=== PATIENT | male | born 1955 | race Caucasian/White ===

== ENCOUNTER 2017-02-19 14:53 | Inpatient (IN) | payer OTHER ==
[~2017-02-19] VITALS: Ht 177.8 cm; Wt 133.4 kg
[~2017-02-19 14:53] MED LIST: COLACE100 MG PO; FELODIPINE ER5 MG PO; FLOMAX0.4 MG PO; FUROSEMIDE80 MG PO; LISINOPRIL10 MG PO; METAMUCIL PACK1 EACH PO; OMEPRAZOLE40 MG PO; SENNOSIDES8.6 MG PO; TRIAMCINOLONE A15 G3 TOP
[2017-02-19 19:43] LABS: BASOPHILS % 0.3 % (0.0-1.0); EOSINOPHILS # (AUTO) 0.1 (0.0-0.4); EOSINOPHILS % 0.9 % (0.0-6.0); HEMATOCRIT 42.7 % (38.2-49.6); HEMOGLOBIN 14.3 g/dL (14.0-18.0); LYMPHOCYTES # (AUTO) 1.8 (1.0-3.2); LYMPHOCYTES % 16.8 % (18.0-39.1); MEAN CORPUSCULAR HEMOGLOBIN 28.4 pg (28-32); MEAN CORPUSCULAR HGB CONC 33.5 g/dL (31-35); MEAN CORPUSCULAR VOLUME 84.7 fL (81-99); MONOCYTES # (AUTO) 0.9 (0.2-0.8); MONOCYTES % 8.4 % (4.4-11.3); NEUTROPHILS # (AUTO) 7.7 (2.1-6.9); NEUTROPHILS % 73.2 % (38.7-80.0); PLATELET COUNT 203 x10e3/uL (140-360); RED BLOOD COUNT 5.04 x10e6/uL (4.3-5.7); RED CELL DISTRIBUTION WIDTH 14.2 % (11.7-14.4)
[2017-02-19 20:01] LABS: KETONES,URINE TRACE (NEGATIVE); LEUKOCYTE ESTERASE ,URINE TRACE (NEGATIVE); NITRITE,URINE NEGATIVE (NEGATIVE); URINE UROBILINOGEN 1 mg/dL (0.2 - 1)
[2017-02-19 20:02] LABS: BILIRUBIN,URINE 1+ (NEGATIVE); CLARITY,URINE CLEAR (CLEAR); COLOR,URINE YELLOW (YELLOW); PROTEIN,URINE DIPSTICK 1+ (NEGATIVE)
[2017-02-19 20:03] LABS: ALANINE AMINOTRANSFERASE 29 IU/L (0-55); ALBUMIN 3.4 g/dL (3.5-5.0); ALBUMIN/GLOBULIN RATIO 0.8 (0.8-2.0); ALKALINE PHOSPHATASE 79 IU/L (40-150); ANION GAP 14.3 mmol/L (8-16); BLOOD UREA NITROGEN 13 mg/dL (7-26); BUN/CREATININE RATIO 12 (6-25); CARBON DIOXIDE 23 mmol/L (22-29); CHLORIDE 106 mmol/L (98-107); CREATININE, SERUM 1.11 mg/dL (0.72-1.25); EST GLOMERULAR FILTRATION RATE > 60 ML/MIN (60-); GLUCOSE 148 mg/dL (74-118); POTASSIUM 3.3 mmol/L (3.5-5.1); SODIUM 140 mmol/L (136-145)
[2017-02-19 20:20] LABS: BACTERIA,URINE FEW /HPF; MUCUS,URINE MODERATE (RARE); RBC,URINE 0-5 /HPF (0-5)
[2017-02-19] MEDS ORDERED: HYDROMORPHONE 1MG/1ML INJ IV PRN (21:30)
[2017-02-19] MEDS ORDERED: PSYLLIUM SEED PO PRN (21:30)
[2017-02-19] MEDS ORDERED: ONDANSETRON HCL INJ 2 MG/ML VIAL IV PRN (21:30)
[2017-02-19] MEDS ORDERED: [UNRECOGNIZED DRUG - OTHER] PO PRN (21:30)
[2017-02-19] MEDS ORDERED: PSYLLIUM 6GM PACKET PO PRN (21:45)
[2017-02-19] MEDS: VANCOMYCIN 1GM/NS 250 ML 250 ML IV SCH (22:25)
[2017-02-19] MEDS: DOCUSATE SODIUM 100 MG CAP PO SCH (22:25)
[2017-02-19] MEDS: PIPER-TAZ 3.375 GM/NS 50 ML 50 ML IV SCH (22:25)
[2017-02-19] MEDS: SODIUM CHLORIDE 0.9% 1000ML 1,000 ML IV SCH (22:25)
[2017-02-20] MEDS: SENNOSIDES 8.6 MG TAB PO SCH ×3 (00:08→21:26)
[2017-02-20] MEDS ORDERED: ACETAMINOPHEN 325 MG TAB PO PRN (03:30)
[2017-02-20 05:34] LABS: BASOPHILS % 0.4 % (0.0-1.0); EOSINOPHILS # (AUTO) 0.1 (0.0-0.4); EOSINOPHILS % 0.9 % (0.0-6.0); HEMATOCRIT 35.4 % (38.2-49.6); HEMOGLOBIN 11.8 g/dL (14.0-18.0); LYMPHOCYTES # (AUTO) 1.4 (1.0-3.2); LYMPHOCYTES % 17.5 % (18.0-39.1); MEAN CORPUSCULAR HEMOGLOBIN 28.2 pg (28-32); MEAN CORPUSCULAR HGB CONC 33.3 g/dL (31-35); MEAN CORPUSCULAR VOLUME 84.5 fL (81-99); MONOCYTES # (AUTO) 0.7 (0.2-0.8); MONOCYTES % 9.3 % (4.4-11.3); NEUTROPHILS # (AUTO) 5.7 (2.1-6.9); NEUTROPHILS % 71.5 % (38.7-80.0); PLATELET COUNT 178 x10e3/uL (140-360); RED BLOOD COUNT 4.19 x10e6/uL (4.3-5.7); RED CELL DISTRIBUTION WIDTH 14.1 % (11.7-14.4)
[2017-02-20 05:58] LABS: ALANINE AMINOTRANSFERASE 24 IU/L (0-55); ALBUMIN 2.4 g/dL (3.5-5.0); ALBUMIN/GLOBULIN RATIO 0.8 (0.8-2.0); ALKALINE PHOSPHATASE 51 IU/L (40-150); BLOOD UREA NITROGEN 10 mg/dL (7-26); BUN/CREATININE RATIO 12 (6-25); CALCIUM 7.2 mg/dL (8.4-10.2); CARBON DIOXIDE 19 mmol/L (22-29); CHLORIDE 116 mmol/L (98-107); CREATININE, SERUM 0.82 mg/dL (0.72-1.25); EST GLOMERULAR FILTRATION RATE > 60 ML/MIN (60-); GLUCOSE 111 mg/dL (74-118); SODIUM 143 mmol/L (136-145)
[2017-02-20] MEDS: PIPER-TAZ 3.375 GM/NS 50 ML 50 ML IV SCH ×3 (07:35→21:26)
[2017-02-20] MEDS ORDERED: NON-FORMULARY MEDICATION (Furosemide 80 MG) PO SCH (09:00)
[2017-02-20] MEDS ORDERED: PANTOPRAZOLE SOD 40 MG TABEC PO SCH (09:00)
[2017-02-20] MEDS: TAMSULOSIN HCL 0.4 MG CAP PO SCH (11:12)
[2017-02-20] MEDS: SODIUM CHLORIDE 0.9% 1000ML 1,000 ML IV SCH ×2 (11:12→13:27)
[2017-02-20] MEDS: VANCOMYCIN 1GM/NS 250 ML 250 ML IV SCH ×2 (11:12→22:24)
[2017-02-20] MEDS: LISINOPRIL 10 MG TAB PO SCH (11:12)
[2017-02-20] MEDS: DOCUSATE SODIUM 100 MG CAP PO SCH ×2 (11:12→21:26)
[2017-02-20] MEDS: FUROSEMIDE 40 MG TAB PO SCH (11:12)
[2017-02-20] MEDS: FELODIPINE 5 MG TAB CR PO SCH (11:53)
[2017-02-20 14:00] VITALS: BP 115/64
[2017-02-20 15:51] VITALS: BP 115/64
[2017-02-20 20:04] VITALS: BP 131/63
[2017-02-20] MEDS ORDERED: POTASSIUM CHLORIDE 20 MEQ TAB CR PO STA (20:06)
[2017-02-20] MEDS: ENOXAPARIN SOD INJ 40 MG/0.4 ML SYR SC SCH (21:25)
[2017-02-21 00:51] VITALS: BP 108/64
[2017-02-21 05:36] VITALS: BP 117/64
[2017-02-21] MEDS: PIPER-TAZ 3.375 GM/NS 50 ML 50 ML IV SCH ×3 (05:41→21:11)
[2017-02-21 07:22] LABS: ANION GAP 12.9 mmol/L (8-16); BLOOD UREA NITROGEN 9 mg/dL (7-26); BUN/CREATININE RATIO 10 (6-25); CALCIUM 8.8 mg/dL (8.4-10.2); CARBON DIOXIDE 23 mmol/L (22-29); CHLORIDE 111 mmol/L (98-107); CREATININE, SERUM 0.86 mg/dL (0.72-1.25); EST GLOMERULAR FILTRATION RATE > 60 ML/MIN (60-); GLUCOSE 119 mg/dL (74-118); POTASSIUM 3.9 mmol/L (3.5-5.1); SODIUM 143 mmol/L (136-145)
[2017-02-21] MEDS: PANTOPRAZOLE SOD 40 MG TABEC PO SCH (07:30)
[2017-02-21 08:00] VITALS: BP 121/68
[2017-02-21] MEDS: FELODIPINE 5 MG TAB CR PO SCH (09:00)
[2017-02-21] MEDS: FUROSEMIDE 40 MG TAB PO SCH (09:00)
[2017-02-21] MEDS: TAMSULOSIN HCL 0.4 MG CAP PO SCH (09:00)
[2017-02-21] MEDS: LISINOPRIL 10 MG TAB PO SCH (09:00)
[2017-02-21] MEDS: DOCUSATE SODIUM 100 MG CAP PO SCH ×2 (09:24→20:54)
[2017-02-21] MEDS: SENNOSIDES 8.6 MG TAB PO SCH ×2 (09:24→20:54)
[2017-02-21] MEDS: VANCOMYCIN 1GM/NS 250 ML 250 ML IV SCH ×2 (10:00→22:00)
[2017-02-21 12:00] VITALS: BP 151/76
--- NOTE | 2017-02-21 12:12 | History and Physical ---
PRIMARY CARE PROVIDER: Dr. Jason Fields. CHIEF COMPLAINT: Cellulitis, right leg. HISTORY OF PRESENT ILLNESS: Mr. Sr is a 61-year-old gentleman who has recurrent cellulitis, right leg. The patient was treated as an outpatient with oral clindamycin and Bactrim with no improvement. This is about 6th or 7th episode that the patient has had of cellulitis in this right lower leg. He denies any history of trauma, but he does state that his skin cracks from dryness and that is where he thinks the infection comes from. REVIEW OF SYSTEMS: The patient has had subjective fever and chills. He denies weight loss. Denies sinus congestion or sore throat. Denies chest pain or palpitations. Denies shortness of breath, wheezing or cough. Denies abdominal pain, nausea, vomiting or melena. Denies dysuria or flank pain. He has erythema and swelling of the right lower leg. He denies bleeding or bruising. He denies headache, vertigo or loss of consciousness. Denies depression, agitation, homicidal or suicidal ideation. PAST MEDICAL HISTORY: Significant for longstanding hypertension for which he takes felodipine, lisinopril and Lasix for what appears to be chronic venous insufficiency. He also has type 2 diabetes that is diet controlled on no medications. He is morbidly obese. He has had the recurrent cellulitis as noted. ALLERGIES: NO KNOWN DRUG ALLERGIES. PAST SURGICAL HISTORY: He has a history of cholecystectomy done in 2009 and an open reduction and internal fixation of the right arm around elbow last year. FAMILY HISTORY: Remarkable for scattered hypertension and diabetes. No premature heart disease. SOCIAL HISTORY: The patient is . Welsh is his primary language. He does not smoke, drink or use illegal drugs. He is generally independently functioning. PHYSICAL EXAM: PSYCHIATRIC: He is alert and oriented times 3 with normal mood and affect. CONSTITUTIONAL: He is morbidly obese. Is in no acute distress. VITAL SIGNS: Blood pressure 115/64. Pulse 77 and regular. Respiratory rate 19. O2 sat 99%. Temperature 98.3. His weight is 303 pounds with a BMI of 43.47. HEENT: Head is atraumatic. Eyes are anicteric with clear conjunctivae. Ears and nares are without erythema or discharge. Oropharynx is clear. NECK: Is supple with no mass or thyromegaly. LYMPHATIC SYSTEM: He has no palpable cervical, axillary or inguinal adenopathy. CARDIOVASCULAR: His heart has a regular rate and rhythm without murmur or extra heart sounds. He has no carotid bruit. He has no edema on the left leg. He has some swelling and erythema of the right lower leg. He has no carotid bruit. RESPIRATORY: Clear to auscultation and percussion with normal respiratory effort. GASTROINTESTINAL: Abdomen is soft without organomegaly, masses or tenderness. Normal bowel sounds present. CUTANEOUS: His skin is warm and dry to touch. He has marked erythema and swelling of his skin on the right leg below the knee, between the knee and the ankle quite markedly erythematous. MUSCULOSKELETAL: Joints are normal alignment without erythema or swelling. Has no calf tenderness. NEUROLOGIC: Exam is nonfocal with intact cranial nerves and no motor or sensory deficits. DIAGNOSTIC STUDIES: Lower extremity venous Doppler was negative on the right leg showed no evidence of DVT. His chemistry profile shows potassium 3.0. The rest of his electrolytes are normal. CO2 is 19. Creatinine 0.82. BUN 10 for a normal GFR. Glucose 111. Transaminases, bilirubin and alkaline phos are normal. CBC shows a white count 7.93 with 71% neutrophils. Hemoglobin 11.8, hematocrit 35.4 and platelet count 178,000. IMPRESSION AND PLAN 1. Cellulitis, right lower extremity. The patient has been started on IV vancomycin and Zosyn. 2. For his hypertension will continue his felodipine the lisinopril and Lasix. It seems well controlled. Will check an echocardiogram to assess the swelling in the lower extremities to severe if it is venous stasis or if there is an element of heart failure. 3. Type 2 diabetes which is diet controlled. Will continue with that and add sliding scale insulin as needed. 4. For prophylaxis the patient is on omeprazole for GI prophylaxis and Lovenox for DVT prophylaxis. Job#: [id number]
[2017-02-21] MEDS ORDERED: SODIUM CHLORIDE 0.9% 250ML 250 ML ONE (12:16)
[2017-02-21 16:00] VITALS: BP 133/69
[2017-02-21] MEDS: ENOXAPARIN SOD INJ 40 MG/0.4 ML SYR SC SCH (17:00)
[2017-02-21 20:20] VITALS: BP 122/56
[2017-02-22 01:22] VITALS: BP 119/66
[2017-02-22 05:05] VITALS: BP 114/66
[2017-02-22] MEDS: PIPER-TAZ 3.375 GM/NS 50 ML 50 ML IV SCH ×3 (06:30→21:00)
[2017-02-22 06:40] LABS: BASOPHILS % 0.5 % (0.0-1.0); EOSINOPHILS # (AUTO) 0.1 (0.0-0.4); EOSINOPHILS % 1.5 % (0.0-6.0); HEMATOCRIT 38.1 % (38.2-49.6); HEMOGLOBIN 12.8 g/dL (14.0-18.0); LYMPHOCYTES % 22.6 % (18.0-39.1); MEAN CORPUSCULAR HEMOGLOBIN 28.5 pg (28-32); MEAN CORPUSCULAR HGB CONC 33.6 g/dL (31-35); MEAN CORPUSCULAR VOLUME 84.9 fL (81-99); MONOCYTES # (AUTO) 0.8 (0.2-0.8); MONOCYTES % 9.2 % (4.4-11.3); NEUTROPHILS # (AUTO) 5.7 (2.1-6.9); NEUTROPHILS % 65.7 % (38.7-80.0); PLATELET COUNT 221 x10e3/uL (140-360); RED BLOOD COUNT 4.49 x10e6/uL (4.3-5.7)
[2017-02-22 07:06] LABS: ANION GAP 11.5 mmol/L (8-16); BLOOD UREA NITROGEN 9 mg/dL (7-26); BUN/CREATININE RATIO 10 (6-25); CALCIUM 8.8 mg/dL (8.4-10.2); CARBON DIOXIDE 27 mmol/L (22-29); CHLORIDE 107 mmol/L (98-107); CHOLESTEROL 151 MD/DL (0-199); EST GLOMERULAR FILTRATION RATE > 60 ML/MIN (60-); GLUCOSE 115 mg/dL (74-118); HDL CHOLESTEROL 30 MG/DL (40-60); LDL CHOLESTEROL 98 MG/DL (60-130); POTASSIUM 3.5 mmol/L (3.5-5.1); SODIUM 142 mmol/L (136-145); TRIGLYCERIDES 114 MG/DL (0-149)
[2017-02-22] MEDS: PANTOPRAZOLE SOD 40 MG TABEC PO SCH (07:30)
[2017-02-22 08:44] VITALS: BP 130/80
[2017-02-22] MEDS: FELODIPINE 5 MG TAB CR PO SCH (09:00)
[2017-02-22] MEDS: TAMSULOSIN HCL 0.4 MG CAP PO SCH (09:00)
[2017-02-22] MEDS: LISINOPRIL 10 MG TAB PO SCH (09:00)
[2017-02-22] MEDS: FUROSEMIDE 40 MG TAB PO SCH (09:00)
[2017-02-22] MEDS: SENNOSIDES 8.6 MG TAB PO SCH ×2 (09:30→21:00)
[2017-02-22] MEDS: DOCUSATE SODIUM 100 MG CAP PO SCH ×2 (09:30→21:00)
[2017-02-22] MEDS: VANCOMYCIN 1GM/NS 250 ML 250 ML IV SCH ×2 (10:00→22:35)
[2017-02-22 12:00] VITALS: BP 134/74
[2017-02-22 16:00] VITALS: BP 133/73
[2017-02-22] MEDS: ENOXAPARIN SOD INJ 40 MG/0.4 ML SYR SC SCH (17:00)
[2017-02-22 20:25] VITALS: BP 143/77
[2017-02-23 00:24] VITALS: BP 114/71
[2017-02-23 04:10] VITALS: BP 112/64
[2017-02-23] MEDS: PIPER-TAZ 3.375 GM/NS 50 ML 50 ML IV SCH ×3 (06:01→21:30)
[2017-02-23 07:12] LABS: BASOPHILS % 0.4 % (0.0-1.0); EOSINOPHILS # (AUTO) 0.1 (0.0-0.4); EOSINOPHILS % 1.3 % (0.0-6.0); HEMATOCRIT 40.9 % (38.2-49.6); HEMOGLOBIN 13.5 g/dL (14.0-18.0); LYMPHOCYTES # (AUTO) 2.1 (1.0-3.2); LYMPHOCYTES % 21.9 % (18.0-39.1); MEAN CORPUSCULAR HEMOGLOBIN 28.4 pg (28-32); MEAN CORPUSCULAR VOLUME 85.9 fL (81-99); MONOCYTES # (AUTO) 0.8 (0.2-0.8); MONOCYTES % 8.1 % (4.4-11.3); NEUTROPHILS # (AUTO) 6.4 (2.1-6.9); NEUTROPHILS % 67.9 % (38.7-80.0); PLATELET COUNT 252 x10e3/uL (140-360); RED BLOOD COUNT 4.76 x10e6/uL (4.3-5.7); RED CELL DISTRIBUTION WIDTH 13.7 % (11.7-14.4)
[2017-02-23] MEDS: PANTOPRAZOLE SOD 40 MG TABEC PO SCH (07:30)
[2017-02-23 07:45] LABS: ANION GAP 13.3 mmol/L (8-16); BLOOD UREA NITROGEN 10 mg/dL (7-26); BUN/CREATININE RATIO 9 (6-25); CALCIUM 9.4 mg/dL (8.4-10.2); CARBON DIOXIDE 30 mmol/L (22-29); CHLORIDE 102 mmol/L (98-107); CREATININE, SERUM 1.12 mg/dL (0.72-1.25); EST GLOMERULAR FILTRATION RATE > 60 ML/MIN (60-); GLUCOSE 115 mg/dL (74-118); POTASSIUM 4.3 mmol/L (3.5-5.1); SODIUM 141 mmol/L (136-145)
[2017-02-23 07:59] LABS: FERRITIN 444.79 ng/mL (21.81-274.66)
[2017-02-23 08:00] VITALS: BP 126/74
[2017-02-23] MEDS: FELODIPINE 5 MG TAB CR PO SCH (09:00)
[2017-02-23] MEDS: POTASSIUM CHLORIDE 20 MEQ TAB CR PO SCH (09:00)
[2017-02-23] MEDS: LISINOPRIL 10 MG TAB PO SCH (09:00)
[2017-02-23] MEDS: TAMSULOSIN HCL 0.4 MG CAP PO SCH (09:00)
[2017-02-23] MEDS: FUROSEMIDE 40 MG TAB PO SCH (09:00)
[2017-02-23] MEDS: SENNOSIDES 8.6 MG TAB PO SCH (09:14)
[2017-02-23] MEDS: DOCUSATE SODIUM 100 MG CAP PO SCH ×2 (09:14→20:57)
[2017-02-23 09:24] LABS: FOLATE 18.6 ng/mL (7.0-15.4)
[2017-02-23] MEDS: VANCOMYCIN 1GM/NS 250 ML 250 ML IV SCH ×2 (10:00→22:00)
[2017-02-23 12:44] VITALS: BP 128/72
[2017-02-23 16:00] VITALS: BP 116/66
[2017-02-23] MEDS: MAGNESIUM OXIDE 400 MG TAB PO SCH (16:47)
[2017-02-23] MEDS: FERROUS SULFATE 325 MG TAB PO SCH (16:47)
[2017-02-23] MEDS: ASCORBIC ACID 500 MG TAB PO SCH (16:47)
[2017-02-23] MEDS: ZINC SULFATE 220 MG CAP PO SCH (16:48)
[2017-02-23] MEDS: ENOXAPARIN SOD INJ 40 MG/0.4 ML SYR SC SCH (16:48)
[2017-02-23] MEDS ORDERED: CHOLESTYRAMINE 4 GM PACKET PO PRN (18:45)
[2017-02-23 20:00] VITALS: BP 127/75
[2017-02-23] MEDS: OYST-CAL-D 500MG TABLET PO SCH (20:57)
[2017-02-24] VITALS (7 sets, daily range): BP systolic 106–134; BP diastolic 57–71
[2017-02-24] MEDS: PIPER-TAZ 3.375 GM/NS 50 ML 50 ML IV SCH ×3 (06:08→22:10)
[2017-02-24 06:59] LABS: INR 0.98; PROTHROMBIN TIME 13.5 seconds (11.9-14.5)
[2017-02-24] MEDS: PANTOPRAZOLE SOD 40 MG TABEC PO SCH (07:30)
[2017-02-24] MEDS: FERROUS SULFATE 325 MG TAB PO SCH ×3 (08:00→17:33)
[2017-02-24] MEDS: MULTIVITAMINS/MINERALS TAB PO SCH (09:00)
[2017-02-24] MEDS: LISINOPRIL 10 MG TAB PO SCH (09:00)
[2017-02-24] MEDS: TAMSULOSIN HCL 0.4 MG CAP PO SCH (09:00)
[2017-02-24] MEDS: FELODIPINE 5 MG TAB CR PO SCH (09:00)
[2017-02-24] MEDS: POTASSIUM CHLORIDE 20 MEQ TAB CR PO SCH (09:00)
[2017-02-24] MEDS: OYST-CAL-D 500MG TABLET PO SCH ×3 (09:00→22:07)
[2017-02-24] MEDS: MAGNESIUM OXIDE 400 MG TAB PO SCH ×2 (09:00→17:33)
[2017-02-24] MEDS: ZINC SULFATE 220 MG CAP PO SCH ×2 (09:00→17:33)
[2017-02-24] MEDS: FUROSEMIDE 40 MG TAB PO SCH (09:00)
[2017-02-24] MEDS: LACTOBACILLUS ACIDOPHILUS CAPSULE PO SCH ×2 (09:00→17:33)
[2017-02-24] MEDS: ASCORBIC ACID 500 MG TAB PO SCH ×2 (09:00→17:33)
[2017-02-24] MEDS: DOCUSATE SODIUM 100 MG CAP PO SCH ×2 (09:30→22:07)
[2017-02-24] MEDS: VANCOMYCIN 1GM/NS 250 ML 250 ML IV SCH ×2 (10:14→22:00)
[2017-02-24] MEDS: ENOXAPARIN SOD INJ 40 MG/0.4 ML SYR SC SCH (17:00)
[2017-02-24] MEDS ORDERED: LIDOCAINE HCL 2% LOCAL INJ 5 ML SDV VIAL INJ ONE (18:26)
[2017-02-24] MEDS ORDERED: PROPOFOL IV EMULSION 10 MG/ML 50 ML VIAL ONE (18:26)
[2017-02-24] MEDS ORDERED: MIDAZOLAM HCL 2 MG/2 ML VIAL ONE (18:45)
[2017-02-24] MEDS ORDERED: FENTANYL CITRATE/PF 100MCG/2 ML INJ ONE (18:45)
[2017-02-24] MEDS ORDERED: SODIUM CHLORIDE 0.9% 250ML 250 ML ONE (21:46)
--- NOTE | 2017-02-24 22:28 | Operative Report ---
DATE OF PROCEDURE: REFERRING PHYSICIANS: Dr. William Stevens and Dr. Bridger Fields. PROCEDURE PERFORMED: Esophagogastroduodenoscopy with biopsies. INDICATIONS FOR EGD: Upper abdominal pain, anemia, and guaiac-positive stools. PROCEDURE: With patient in a decubitus position, flexible fiberoptic Olympus gastroscope was introduced into the esophagus under direct visualization without any difficulty. There was some patchy erythema noted in the distal esophagus. A minute nodule was noted at the GE junction that was biopsied. The scope was then advanced with ease into the stomach, traversing a small hiatal hernia. Mucosa overlying the antrum and the body revealed some diffuse erythema and a low grade to moderate edema. Biopsies were obtained and sent to stain for H. pylori. There was a 4-mm nodule, mid body, greater curvature that was also biopsied. The peripyloric area was nodular and biopsies were obtained. It was then with gentle persistent pressure all the way to the 2nd portion of the duodenum. It was then withdrawn slowly. Mucosa overlying the proximal 2nd portion and the duodenal bulb appeared to be within normal limits. The scope was then withdrawn back into the stomach and retroflexed, and the mucosa overlying the fundus and the cardia appeared to be within normal limits. The scope was then straightened out. The stomach was decompressed. The scope subsequently withdrawn. Patient tolerated the procedure well. IMPRESSIONS 1. Distal esophagitis. 2. Focal nodularity, gastroesophageal junction, biopsied. 3. Small hiatal hernia. 4. Gastritis, biopsied. Biopsies sent to stain for Helicobacter pylori. 5. Approximately 4-mm nodule, antrum, biopsied. 6. Peripyloric nodules, biopsied. PLAN: Follow up histology. Continue PPI therapy. Job#: [id number] CF cc:MD BRIDGER KIM, DO
[2017-02-25 00:29] VITALS: BP 123/70
[2017-02-25] MEDS: PIPER-TAZ 3.375 GM/NS 50 ML 50 ML IV SCH ×2 (05:51→13:30)
[2017-02-25 06:28] LABS: BASOPHILS % 0.4 % (0.0-1.0); EOSINOPHILS # (AUTO) 0.1 (0.0-0.4); EOSINOPHILS % 1.4 % (0.0-6.0); HEMOGLOBIN 12.9 g/dL (14.0-18.0); LYMPHOCYTES # (AUTO) 1.6 (1.0-3.2); LYMPHOCYTES % 21.6 % (18.0-39.1); MEAN CORPUSCULAR HEMOGLOBIN 28.4 pg (28-32); MEAN CORPUSCULAR HGB CONC 33.1 g/dL (31-35); MEAN CORPUSCULAR VOLUME 85.9 fL (81-99); MONOCYTES # (AUTO) 0.7 (0.2-0.8); MONOCYTES % 9.4 % (4.4-11.3); NEUTROPHILS # (AUTO) 4.9 (2.1-6.9); NEUTROPHILS % 66.8 % (38.7-80.0); PLATELET COUNT 272 x10e3/uL (140-360); RED BLOOD COUNT 4.54 x10e6/uL (4.3-5.7); RED CELL DISTRIBUTION WIDTH 13.5 % (11.7-14.4)
[2017-02-25 06:46] LABS: ANION GAP 10.8 mmol/L (8-16); BLOOD UREA NITROGEN 11 mg/dL (7-26); BUN/CREATININE RATIO 12 (6-25); CARBON DIOXIDE 29 mmol/L (22-29); CHLORIDE 108 mmol/L (98-107); CREATININE, SERUM 0.92 mg/dL (0.72-1.25); EST GLOMERULAR FILTRATION RATE > 60 ML/MIN (60-); GLUCOSE 104 mg/dL (74-118); MAGNESIUM 2.1 MG/DL (1.3-2.1); POTASSIUM 3.8 mmol/L (3.5-5.1); SODIUM 144 mmol/L (136-145)
[2017-02-25] MEDS: PANTOPRAZOLE SOD 40 MG TABEC PO SCH (07:30)
[2017-02-25 07:47] VITALS: BP 113/63
[2017-02-25] MEDS: FERROUS SULFATE 325 MG TAB PO SCH ×2 (08:00→12:00)
[2017-02-25] MEDS: TAMSULOSIN HCL 0.4 MG CAP PO SCH (08:58)
[2017-02-25] MEDS: FUROSEMIDE 40 MG TAB PO SCH (08:59)
[2017-02-25] MEDS: POTASSIUM CHLORIDE 20 MEQ TAB CR PO SCH (08:59)
[2017-02-25] MEDS: MAGNESIUM OXIDE 400 MG TAB PO SCH (08:59)
[2017-02-25] MEDS: OYST-CAL-D 500MG TABLET PO SCH (08:59)
[2017-02-25] MEDS: FELODIPINE 5 MG TAB CR PO SCH (08:59)
[2017-02-25] MEDS: LACTOBACILLUS ACIDOPHILUS CAPSULE PO SCH (08:59)
[2017-02-25] MEDS: LISINOPRIL 10 MG TAB PO SCH (08:59)
[2017-02-25] MEDS: MULTIVITAMINS/MINERALS TAB PO SCH (08:59)
[2017-02-25] MEDS: ASCORBIC ACID 500 MG TAB PO SCH (09:00)
[2017-02-25] MEDS: DOCUSATE SODIUM 100 MG CAP PO SCH (09:00)
[2017-02-25] MEDS: ZINC SULFATE 220 MG CAP PO SCH (09:00)
[2017-02-25] MEDS: VANCOMYCIN 1GM/NS 250 ML 250 ML IV SCH (10:00)
[2017-02-25 12:46] VITALS: BP 142/71
[2017-02-25] MEDS ORDERED: BACTRIM DS TAB1 EACH PO ×2 (13:57→14:07)
[2017-02-25] MEDS ORDERED: AUGMENTIN 875-1 EACH PO (13:57)
--- NOTE | 2017-02-26 02:19 | Discharge Summary ---
ADMITTING DIAGNOSES 1. Cellulitis in the right leg. 2. Hypertension. 3. Type-2 diabetes. 4. Obesity. DISCHARGE DIAGNOSES 1. Cellulitis in the right leg. 2. Hypertension. 3. Type-2 diabetes. 4. Obesity. 5. Esophagitis. 6. Gastritis. 7. Hiatal hernia. 8. Hypokalemia. 9. Gastrointestinal bleed. 10. Patient has a history of hypertension. 11. Type-2 diabetes. 12. Obesity. 13. Long history of cellulitis in his legs. HOSPITAL COURSE: A 61-year-old gentleman presented with right leg cellulitis, which has been recurrent over many years. He was treated outpatient with p.o. clindamycin and Bactrim with no improvement. No trauma, but states that he does have dryness of the skin, where he uses Lubriderm frequently. During the hospital stay, the patient was started on vancomycin and Zosyn IV. For hypertension, he was restarted on home medicine. Patient was ordered an echo, which showed 55%-60% EF, mild left ventricular hypertrophy, trace aortic regurg, trace mitral regurg, trace tricuspid regurg. Patient was also noted to have a GI bleed due to the positive fecal occult blood test. GI was consulted and EGD was ordered, which was completed on February 24. The EGD showed esophagitis, gastritis, hiatal hernia with nodules on the gastroesophageal junction, which were biopsied. A 4-mm nodule on the antrum and a peripyloric nodule, which was also biopsied. On admission, patient's potassium was found to be 3.3, which was repleted and at time of discharge, potassium is 3.8. Hemoglobin at admission was 14.3. At discharge, 12.9. Patient's diabetes is diet controlled. A1c is less than 7, LDL is under 100. Patient was started on Augmentin b.i.d. for 14 days and Bactrim DS [address] Stevens's recommendation. Patient is to follow up with gastroenterology in 1-2 weeks for biopsy results. Patient will discharge home and follow up with PCP as needed. Dictated By: Angelica De Leon NP JAYNA STEVENS MD Job#: [id number] CQ
== END 2017-02-25 16:07 | disposition home or self-care (01) | DRG 603 ==
LOC: ER 14:53 → ERHOLD 21:33 → MED/SURG2 02-20 12:08
PROVIDERS: ADMIT Internal Medicine; ATTEND Internal Medicine
PROC: 0DB68ZX Excision of Stomach, Via Natural or Artificial Opening Endoscopic, Diagnostic (ICD-10-PCS; principal; 2017-02-24 18:30)
PROC: 0DB48ZX Excision of Esophagogastric Junction, Via Natural or Artificial Opening Endoscopic, Diagnostic (ICD-10-PCS; 2017-02-24 18:30)
DX: L03.115 Cellulitis of right lower limb (principal); Z68.41 Body mass index [BMI] 40.0-44.9, adult; K52.1 Toxic gastroenteritis and colitis; E66.01 Morbid (severe) obesity due to excess calories; K92.2 Gastrointestinal hemorrhage, unspecified; I10 Essential (primary) hypertension; E11.9 Type 2 diabetes mellitus without complications; K20.9 Esophagitis, unspecified; K29.70 Gastritis, unspecified, without bleeding; K44.9 Diaphragmatic hernia without obstruction or gangrene; K31.89 Other diseases of stomach and duodenum; D64.9 Anemia, unspecified; T36.8X5A Adverse effect of other systemic antibiotics, initial encounter; G47.33 Obstructive sleep apnea (adult) (pediatric); E87.6 Hypokalemia
CPT/HCPCS: 36415; 43239; 80048; 80053; 80061; 80202; 81001; 82270; 82607; 82728; 82746; 82948; 83036; 83540; 83735; 84466; 85025; 85045; 85610; 85730; 87040; 88305; 88312; 93306; 93971; 94660; 96360; 96365; 96374; 96376; 99284; J1170; J1650; J2001; J2250; J2543; J3370; J7030; J7050

== ENCOUNTER → 2017-12-25 | Day surgery (SDC) | payer OTHER ==
[~2017-12-25] MED LIST changes: +ASPIR 8181 MG PO; +AUGMENTIN 875-1 EACH PO; +B VITAMIN PO; +BACTRIM DS TAB1 EACH PO; +CO Q1060 MG PO; +FENTANYL CITRATE/PF 100MCG/2 ML INJ ONE; +GLUCOTEN CAPLE1 EACH PO; +HYOSCYAMINE SULFATE 0.5 MG/ML INJ ONE; +MIDAZOLAM HCL 2 MG/2 ML VIAL ONE; +PROPOFOL IV EMULSION 10 MG/ML 50 ML VIAL ONE; +SIMVASTATIN20 MG PO
--- OUTSIDE RECORDS SUMMARY | 2017-12-25 08:24 | XMS REPORT | Continuity of Care Document ---
Author Author [facility] Interface Address Unknown Phone Unavailable Problems Problem Status Onset Date Classification Date Reported Comments Source LEFT RADIAL HEAD FX Active 09/23/2015 [facility] FRACTURE FIXATION Active 09/23/2015 [facility] GERD (<span [id number]</span>) Resolved Problem 10/01/2015 [facility] Hypertension Resolved Problem 10/01/2015 [facility] FRACTURE OF UNSPECIFIED PART OF BODY OF Active [facility] Medications Medication Details Route Status Patient Instructions Ordering Provider Order Date Source pantoprazole 40 mg, 1 tab, Route: PO, Drug form: ECTAB, Before Breakfast, Dosing Weight 140.909, kg, Start date: 09/28/15 12:00:00 CDT, Duration: 30 day, Stop date: 10/28/15 7:30:00 CDTNotes: Tablet should not be chewed or crushed. (Same as: Protonix) Inactive 09/28/2015 [facility] lisinopril 20 mg oral tablet 40 mg=2 tab, PO, Daily, 0 Refill(s) Active 09/28/2015 [facility] senna 8.6 mg oral tablet 8.6 mg=1 tab, PO, BID, # 28 tab, 0 Refill(s) Active 09/28/2015 [facility] polyethylene glycol 3350 oral powder for reconstitution 17 gm, PO, Daily, PRN Constipation, # 527 gm, 0 Refill(s) Active 09/28/2015 [facility] pantoprazole 40 mg oral enteric coated tablet 40 mg, PO, Before Breakfast, # 14 tab, 0 Refill(s) Active 09/28/2015 [facility] gabapentin 300 MG Oral Capsule 300 mg=1 cap, PO, Q8Hnow, # 21 cap, 0 Refill(s) Active 09/28/2015 [facility] Docusate Sodium 100 MG Oral Capsule 100 mg=1 cap, PO, BID, PRN Constipation, # 60 cap, 0 Refill(s) Active 09/28/2015 [facility] Aspirin 325 MG Enteric Coated Tablet 325 mg=1 tab, PO, [id number], # 28 tab, 0 Refill(s) Active 09/28/2015 [facility] amLODIPine 10 mg oral tablet 10 mg=1 tab, PO, Daily, # 30 tab, 0 Refill(s) Active 09/28/2015 [facility] Acetaminophen 325 MG / Hydrocodone Bitartrate 5 MG Oral Tablet [Lawrence 5/325] 2 tab, PO, Q4H, PRN Pain Score 7-10, # 42 tab, 0 Refill(s) Active 09/28/2015 [facility] Aspirin 325 MG Enteric Coated Tablet 325 mg, 1 tab, Route: PO, Drug form: ECTAB, [id number], Dosing Weight 140.909, kg, Priority: STAT, Start date: 09/28/15 11:18:00 CDT, Duration: 30 day, Stop date: 10/27/15 23:18:00 CDTNotes: (Do Not Crush) Do not crush or chew. Inactive 09/28/2015 [facility] Lactulose 667 MG/ML Oral Solution 10 gm, 15 mL, Route: PO, Drug Form: SYRP, Dosing Weight 140.909, kg, BID, PRN Constipation, Start date: 09/27/15 14:55:00 CDT, Duration: 30 day, Stop date: 10/27/15 14:54:00 CDTNotes: (Same as:Chronulac) No Longer Active 09/27/2015 [facility] Lasix 80 mg, 2 tab, Route: PO, Drug form: TAB, Daily, Dosing Weight 140.909, kg, Start date: 09/27/15 9:00:00 CDT, Duration: 30 day, Stop date: 10/26/15 9:00:00 CDTNotes: (Same as: Lasix) May cause GI upset. Give with food or milk. No Longer Active 09/27/2015 [facility] Labetalol 10 mg, 2 mL, Route: IVP, Drug form: INJ, Q4H, Dosing Weight 140.909, kg, PRN Other -See Comment, Start date: 09/26/15 19:34:00 CDT, Duration: 3 doses or times, Stop date: Limited # of times, For SBP>170 No Longer Active 09/27/2015 [facility] Nitroglycerin 0.02 MG/MG Topical Ointment 1 inch, Route: TOP, Drug Form: OINT, Dosing Weight 140.909, kg, Q6H, Start date: 09/26/15 18:00:00 CDT, Duration: 18 hr, Stop date: 09/27/15 6:00:00 CDTNotes: 1 gram is approximately 1 inch of nitroglycerin ointment (20 mg NTG per gram) (Same as:Nitro-Bid) No Longer Active 09/26/2015 [facility] Labetalol 10 mg, 2 mL, Route: IVP, Drug form: INJ, Q15Min, Dosing Weight 140.909, kg, PRN Hypertension, Start date: 09/26/15 17:41:00 CDT, Duration: 3 doses or times, Stop date: Limited # of times Inactive 09/26/2015 [facility] Lasix 40 mg, 4 mL, Route: IVP, Drug form: INJ, ONCE, Dosing Weight 140.909, kg, Start date: 09/26/15 17:36:00 CDT, Stop date: 09/26/15 17:36:00 CDTNotes: (Same as: Lasix) MEDICATION WASTE Product Size: 40 mg Product Wasted: ___ mg Inactive 09/26/2015 [facility] Labetalol 20 mg, 4 mL, Route: IVP, Drug form: INJ, ONCE, Dosing Weight 140.909, kg, Start date: 09/26/15 16:17:00 CDT, Stop date: 09/26/15 16:17:00 CDT Inactive 09/26/2015 [facility] gabapentin 300 mg, 1 cap, Route: PO, Drug form: CAP, Q8Hnow, Dosing Weight 140.909, kg, Start date: 09/26/15 16:00:00 CDT, Duration: 30 day, Stop date: 10/26/15 8:00:00 CDTNotes: (Same as: Neurontin) No Longer Active 09/26/2015 [facility] Tramadol 100 mg, 2 tab, Route: PO, Drug form: TAB, Q6Hnow, Dosing Weight 140.909, kg, Start date: 09/26/15 16:00:00 CDT, Duration: 30 day, Stop date: 10/26/15 10:00:00 CDTNotes: Not to exceed 400mg/day. (Same As: Ultram) No Longer Active 09/26/2015 [facility] Acetaminophen 325 MG / Hydrocodone Bitartrate 5 MG Oral Tablet 2 tab, Route: PO, Drug Form: TAB, Dosing Weight 138.636, kg, Q4H, PRN Pain Score 7-10, Start date: 09/26/15 15:56:00 CDT, Duration: 30 day, Stop date: 10/26/15 15:55:00 CDTNotes: (Same as: Lawrence 325/5) Do not exceed 4gm/day of acetaminophen. Inactive 09/26/2015 [facility] Methocarbamol 1,000 mg, 2 tab, Route: PO, Drug form: TAB, Q8H, Dosing Weight 140.909, kg, PRN Muscle Spasms, Start date: 09/26/15 15:36:00 CDT, Duration: 30 day, Stop date: 10/26/15 15:35:00 CDTNotes: (Same as:Robaxin) No Longer Active 09/26/2015 [facility] Acetaminophen 325 MG / Hydrocodone Bitartrate 5 MG Oral Tablet [Lawrence 5/325] 2 tab, Route: PO, Drug Form: TAB, Dosing Weight 140.909, kg, Q4H, PRN Pain Score 7-10, Start date: 09/26/15 15:35:00 CDT, Duration: 30 day, Stop date: 10/26/15 15:34:00 CDTNotes: (Same as: Lawrence 325/5) Do not exceed 4gm/day of acetaminophen. No Longer Active 09/26/2015 [facility] Acetaminophen 325 MG / Hydrocodone Bitartrate 5 MG Oral Tablet [Lawrence 5/325] 1 tab, Route: PO, Drug Form: TAB, Dosing Weight 140.909, kg, Q4H, PRN Pain Score 4-6, Start date: 09/26/15 15:34:00 CDT, Duration: 30 day, Stop date: 10/26/15 15:33:00 CDTNotes: (Same as: Lawrence 325/5) Do not exceed 4gm/day of acetaminophen. No Longer Active 09/26/2015 [facility] enalapril 0.625 mg, Route: IVP, ONCE, Dosing Weight 140.909, kg, Start date: 09/26/15 13:29:00 CDT, Stop date: 09/26/15 13:29:00 CDT Inactive 09/26/2015 [facility] Ondansetron 4 mg, 2 mL, Route: IVP, Drug form: INJ, ONCE, Dosing Weight 140.909, kg, PRN Nausea & Vomiting, Start date: 09/26/15 13:16:00 CDTNotes: (Same as: Zofran) MEDICATION WASTE Product Size: 4 mg Product Wasted: ___ mg No Longer Active 09/26/2015 [facility] Labetalol 10 mg, 2 mL, Route: IVP, Drug form: INJ, Q5Min, Dosing Weight 140.909, kg, PRN Elevated BP, Start date: 09/26/15 13:16:00 CDT, Duration: 5 doses or times, Stop date: 09/27/15 0:00:00 CDT Inactive 09/26/2015 [facility] Hydralazine 10 mg, 0.5 mL, Route: IVP, Drug form: INJ, Q20Min, Dosing Weight 140.909, kg, PRN Elevated BP, Start date: 09/26/15 13:16:00 CDT, Duration: 2 doses or times, Stop date: 09/27/15 0:00:00 CDTNotes: (Same as: Apresoline) Push over 5 minutes Inactive 09/26/2015 [facility] Naloxone 0.4 mg, 1 mL, Route: IVP, Drug form: INJ, Q2MIN, Dosing Weight 140.909, kg, PRN Narcotic Reversal, Start date: 09/26/15 13:16:00 CDT, Duration: 8 doses or times, Stop date: 09/27/15 0:00:00 CDTNotes: Same as Narcan No Longer Active 09/26/2015 [facility] Flumazenil 0.2 mg, 2 mL, Route: IVP, Drug form: INJ, PRN, Dosing Weight 140.909, kg, PRN Benzodiazepine Reversal, Initial dose, Start date: 09/26/15 13:16:00 CDT, Stop date: 09/27/15 0:00:00 CDTNotes: (Same as: Romazicon) No Longer Active 09/26/2015 [facility] Ancef + sodium chloride 0.9% INJ 100 mL 2 gm, Route: IVPB, Drug form: INJ, ABXQ8H, Dosing Weight 140.909, kg, Start date: 09/26/15 13:00:00 CDT, Duration: 3 doses or times, Stop date: 09/27/15 10:00:00 CDTNotes: (Same As: Ancef, Kefzol) Cefazolin FOR IV SET ONLY MEDICATION WASTE Product Size: 1000 mg Product Wasted: ___ mg No Longer Active 09/26/2015 [facility] Ancef 2 gm, Route: IVPB, ONCE, Dosing Weight 140.909, kg, Start date: 09/26/15 10:18:00 CDT, Duration: 1 doses or times, Stop date: 09/26/15 10:18:00 CDT, Surgical Prophylaxis Only; For patients Inactive 09/26/2015 [facility] Flumazenil 0.2 mg, 2 mL, Route: IVP, Drug form: INJ, PRN, Dosing Weight 140.909, kg, PRN Benzodiazepine Reversal, Initial dose, Start date: 09/26/15 9:40:00 CDT, Duration: 1 day, Stop date: 09/27/15 9:39:00 CDT Notes: (Same as: Romazicon) Inactive 09/26/2015 [facility] Naloxone 0.4 mg, 1 mL, Route: IVP, Drug form: INJ, Q2MIN, Dosing Weight 140.909, kg, PRN Narcotic Reversal, Start date: 09/26/15 9:40:00 CDT, Duration: 8 doses or times, Stop date: Limited # of timesNotes: (Same as: Narcan) Inactive 09/26/2015 [facility] Hydromorphone 0.5 mg, 0.25 mL, Route: IVP, Drug form: INJ, Q5Min, Dosing Weight 140.909, kg, PRN Pain Score 7-10, Start date: 09/26/15 9:40:00 CDT, Duration: 4 doses or times, Stop date: Limited # of timesNotes: ( Same as: Dilaudid) Inactive 09/26/2015 [facility] Ondansetron 4 mg, 2 mL, Route: IVP, Drug form: INJ, ONCE, Dosing Weight 140.909, kg, PRN Nausea & Vomiting, Start date: 09/26/15 9:40:00 CDTNotes: (Same as: Zofran) MEDICATION WASTE Product Size: 4 mg Product Wasted: ___ mg Inactive 09/26/2015 [facility] Oxycodone 5 mg, 1 tab, Route: PO, Drug form: TAB, Q4H, Dosing Weight 140.909, kg, PRN Pain Score 4-6, Start date: 09/26/15 9:40:00 CDT, Duration: 1 day, Stop date: 09/27/15 9:39:00 CDTNotes: (Same as: Roxicodone) Inactive 09/26/2015 [facility] Miralax 17 gm, 1 pkt, Route: PO, Drug form: PWDR, Daily, Dosing Weight 140.909, kg, Start date: 09/25/15 16:00:00 CDT, Duration: 30 day, Stop date: 10/25/15 9:00:00 CDTNotes: Dissolve in 8 oz of water or juice. (Same as: Miralax) No Longer Active 09/25/2015 [facility] Hydrochlorothiazide 25 mg, 1 tab, Route: PO, Drug form: TAB, Daily, Dosing Weight 140.909, kg, Start date: 09/25/15 15:00:00 CDT, Duration: 30 day, Stop date: 10/25/15 9:00:00 CDTNotes: (Same as: Hydrodiuril) With food. No Longer Active 09/25/2015 [facility] Lasix 20 mg, 2 mL, Route: IVP, Drug form: INJ, ONCE, Dosing Weight 140.909, kg, Start date: 09/25/15 14:26:00 CDT, Stop date: 09/25/15 14:26:00 CDTNotes: (Same as: Lasix) Inactive 09/25/2015 [facility] Labetalol 10 mg, 2 mL, Route: IVP, Drug form: INJ, ONCE, Dosing Weight 140.909, kg, Start date: 09/25/15 14:23:00 CDT, Stop date: 09/25/15 14:23:00 CDT Inactive 09/25/2015 [facility] Benadryl 25 mg, 1 cap, Route: PO, Drug form: CAP, ONCE, Dosing Weight 140.909, kg, Start date: 09/24/15 20:57:00 CDT, Stop date: 09/24/15 20:57:00 CDTNotes: (Same as: Benadryl) Inactive 09/25/2015 [facility] Hydralazine 10 mg, 0.5 mL, Route: IVP, Drug form: INJ, Q4H, Dosing Weight 140.909, kg, PRN Hypertension, Start date: 09/24/15 12:54:00 CDT, Stop date: 10/24/15 12:53:00 CDTNotes: (Same as: Apresoline) Push over 5 minutes No Longer Active 09/24/2015 [facility] Amlodipine 10 mg, 1 tab, Route: PO, Drug form: TAB, Daily, Dosing Weight 138.636, kg, Start date: 09/24/15 9:00:00 CDT, Duration: 30 day, Stop date: 10/23/15 9:00:00 CDTNotes: (Same as: Norvasc) No Longer Active 09/24/2015 [facility] Flomax 0.4 mg, 1 cap, Route: PO, Drug form: CAP, Daily, Dosing Weight 138.636, kg, Start date: 09/24/15 9:00:00 CDT, Duration: 30 day, Stop date: 10/23/15 9:00:00 CDTNotes: (Same As: Flomax) "Do Not Crush" No Longer Active 09/24/2015 [facility] Lisinopril 40 mg, 2 tab, Route: PO, Drug form: TAB, Daily, Dosing Weight 138.636, kg, Start date: 09/24/15 9:00:00 CDT, Stop date: 10/23/15 9:00:00 CDTNotes: (Same as: Prinivil, Zestril) No Longer Active 09/24/2015 [facility] Docusate Sodium 100 MG Oral Capsule 100 mg, 1 cap, Route: PO, Drug form: CAP, BID, Dosing Weight 140.909, kg, Start date: 09/24/15 9:00:00 CDT, Duration: 30 day, Stop date: 10/23/15 17:00:00 CDTNotes: (Same as: Colace) (Do Not Crush) No Longer Active 09/24/2015 [facility] senna 8.6 mg oral tablet 8.6 mg, 1 tab, Route: PO, Drug Form: TAB, Dosing Weight 140.909, kg, BID, Start date: 09/24/15 9:00:00 CDT, Duration: 30 day, Stop date: 10/23/15 17:00:00 CDTNotes: (Same as: Senokot) No Longer Active 09/24/2015 [facility] Acetaminophen 325 MG / Hydrocodone Bitartrate 10 MG Oral Tablet [Lawrence 10/325] 1 tab, Route: PO, Drug Form: TAB, Dosing Weight 140.909, kg, Q6H, Start date: 09/24/15 6:00:00 CDT, Duration: 30 day, Stop date: 10/24/15 0:00:00 CDTNotes: Do not exceed 4gm/day of acetaminophen. (Same as: Lawrence 325/10) No Longer Active 09/24/2015 [facility] Enoxaparin 40 mg, 0.4 mL, Route: SUB-Q, Drug form: INJ, [id number], Dosing Weight 138.636, kg, Consider for obese patients, Start date: 09/24/15 3:00:00 CDT, Duration: 30 day, Stop date: 10/23/15 17:00:00 CDTNotes: (Same as: Lovenox) No Longer Active 09/24/2015 [facility] potassium chloride 10 mEq, 50 mL, Route: IVPB, Drug form: INJ, ONCE, Dosing Weight 138.636, kg, Start date: 09/24/15 2:30:00 CDT, Stop date: 09/24/15 2:30:00 CDTNotes: (Same as: KCL) Infuse over 2 hours. Inactive 09/24/2015 [facility] Tamsulosin hydrochloride 0.4 MG Oral Capsule [Flomax] 0.4 mg=1 cap, PO, Daily, # 30 cap, 0 Refill(s) Active 09/24/2015 [facility] Furosemide 80 MG Oral Tablet [Lasix] 80 mg=1 tab, PO, Daily, # 90 tab, 0 Refill(s) Active 09/24/2015 [facility] lisinopril 10 mg oral tablet 10 mg=1 tab, PO, Daily, # 30 tab, 0 Refill(s) No Longer Active 09/24/2015 [facility] senna 8.6 mg oral tablet 8.6 mg, 1 tab, Route: PO, Drug Form: TAB, Dosing Weight 138.636, kg, BID, PRN Constipation, Start date: 09/24/15 2:13:00 CDT, Duration: 30 day, Stop date: 10/24/15 2:12:00 CDTNotes: (Same as: Senokot) Inactive 09/24/2015 [facility] Saline Flush 0.9% 10 ml, Route: IVP, Drug Form: INJ, Dosing Weight 138.636, kg, PRN, PRN Line Flush, Start date: 09/24/15 2:12:00 CDT, Duration: 30 day, Stop date: 10/24/15 2:11:00 CDTNotes: Same as: BD Posiflush Sterile No Longer Active 09/24/2015 [facility] Sodium Chloride 0.154 MEQ/ML Injectable Solution 1,000 mL, Rate: 45 ml/hr, Infuse over: 22.2 hr, Route: IV, Dosing Weight 138.636 kg, Total Volume: 1,000, Start date: 09/24/15 2:12:00 CDT, Duration: 30 day, Stop date: 10/24/15 2:11:00 CDT No Longer Active 09/24/2015 [facility] Ondansetron 4 mg, 2 mL, Route: IVP, Drug form: INJ, Q6H, Dosing Weight 138.636, kg, PRN Nausea & Vomiting, Start date: 09/24/15 2:12:00 CDT, Duration: 30 day, Stop date: 10/24/15 2:11:00 CDTNotes: (Same as: Shabnam) MEDICATION WASTE Product Size: 4 mg Product Wasted: ___ mg No Longer Active 09/24/2015 [facility] Acetaminophen 650 mg, 2 tab, Route: PO, Drug form: TAB, Q4H, Dosing Weight 138.636, kg, PRN Pain 1-3/Temp > 100.4 F, Start date: 09/24/15 2:12:00 CDT, Duration: 30 day, Stop date: 10/24/15 2:11:00 CDTNotes: Do not exceed 4 gm/day. (Same as: Tylenol) No Longer Active 09/24/2015 [facility] Acetaminophen 325 MG / Hydrocodone Bitartrate 5 MG Oral Tablet 1 tab, Route: PO, Drug Form: TAB, Dosing Weight 138.636, kg, Q4H, PRN Pain Score 4-6, Start date: 09/24/15 2:12:00 CDT, Duration: 30 day, Stop date: 10/24/15 2:11:00 CDTNotes: (Same as: Lawrence 325/5) Do not exceed 4gm/day of acetaminophen. No Longer Active 09/24/2015 [facility] Docusate 100 mg, 1 cap, Route: PO, Drug form: CAP, BID, Dosing Weight 138.636, kg, PRN Constipation, Start date: 09/24/15 2:12:00 CDT, Duration: 30 day, Stop date: 10/24/15 2:11:00 CDTNotes: (Same as: Colace) (Do Not Crush) No Longer Active 09/24/2015 [facility] Morphine 2 mg, 1 mL, Route: IVP, Drug form: INJ, Q4H, Dosing Weight 138.636, kg, PRN Pain Score 7-10, Start date: 09/24/15 2:12:00 CDT, Duration: 30 day, Stop date: 10/24/15 2:11:00 CDTNotes: (Same as:MORPhine Sulfate) No Longer Active 09/24/2015 [facility] enalaprilat 0.625 mg, 0.5 mL, Route: IV, Drug form: INJ, ONCE, Dosing Weight 138.636, kg, Start date: 09/24/15 0:01:00 CDT, Stop date: 09/24/15 0:01:00 CDTNotes: (Same as: Vasotec-IV) Inactive 09/24/2015 [facility] Dilaudid 1 mg, 0.5 mL, Route: IVP, Drug form: INJ, ONCE, Dosing Weight 138.636, kg, Priority: STAT, Start date: 09/23/15 19:50:00 CDT, Stop date: 09/23/15 19:50:00 CDTNotes: Same as: Dilaudid Inactive 09/24/2015 [facility] Morphine 4 mg, 1 mL, Route: IVP, Drug form: INJ, ONCE, Dosing Weight 138.636, kg, Priority: STAT, Start date: 09/23/15 18:36:00 CDT, Stop date: 09/23/15 18:36:00 CDTNotes: (Same as:MORPhine Sulfate) Inactive 09/23/2015 [facility] Zofran 4 mg, 2 mL, Route: IVP, Drug form: INJ, ONCE, Dosing Weight 138.636, kg, Priority: STAT, Start date: 09/23/15 18:36:00 CDT, Stop date: 09/23/15 18:36:00 CDTNotes: (Same as: Zofran) MEDICATION WASTE Product Size: 4 mg Product Wasted: ___ mg Inactive 09/23/2015 [facility] Allergies, Adverse Reactions, Alerts Substance Category Reaction Severity Reaction type Status Date Reported Comments Source Immunizations Immunization Date Given Site Status Last Updated Comments Source Results Order Name Results Value Reference Range Date Interpretation Comments Source PARATHYROID PROFILE Ca Norm WB 1.11 mMol/L 1.05 - 1.25 09/28/2015 [facility] PARATHYROID PROFILE Ca Ion WB 1.08 mMol/L 1.05 - 1.25 09/28/2015 [facility] Chest 1view DX Chest 1view DX EXAM: XR CHEST 1 VIEWS DATE: 09/28/2015 9:34 AM CDT INDICATION: Respiratory distress COMPARISON: 09/23/2015 at 0000 hours TECHNIQUE: PA chest radiograph FINDINGS: No acute osseous abnormalities. Cardiomediastinal silhouette is normal for the technique. Costophrenic sulci sharp. No pleural effusions. No focal consolidation or pneumothorax. IMPRESSION: 1. Lungs are clear with no focal consolidative process. 09/28/2015 - - This report was dictated by a Programming Coordinator/Fellow. I have personally reviewed the images as well as the Resident's interpretation and agree with the findings. Read by: Lucas Miguel MD Resident: Lucas Miguel MD Dictated Date/time: 09/28/15 11:41 Electronically Signed by: Tate Slater MD 09/28/15 16:09 FINAL REPORT [facility] ELECTROLYTES Potassium Lvl 3.5 meq/L 3.5 - 5.1 09/28/2015 [facility] ELECTROLYTES eGFR 83 mL/min/1.73m2 09/28/2015 Result Comment: The eGFR is calculated using the CKD-EPI formula. In most young, healthy individuals the eGFR will be >90 mL/min/1.73m2. The eGFR declines with age. An eGFR of 60-89 may be normal in some populations, particularly the elderly, for whom the CKD-EPI formula has not been extensively validated. Use of the eGFR is not recommended in the following populations: Individuals with unstable creatinine concentrations, including patients and those with serious co-morbid conditions. Patients with extremes in muscle mass or diet. The data above are obtained from the National Kidney Disease Education Program (NKDEP) which additionally recommends that when the eGFR is used in patients with extremes of body mass index for purposes of drug dosing, the eGFR should be multiplied by the estimated BMI. [facility] ELECTROLYTES AGAP 24.5 meq/L 10.0 - 20.0 09/28/2015 [facility] ELECTROLYTES CO2 15 meq/L 24 - 32 09/28/2015 [facility] ELECTROLYTES Chloride Lvl 100 meq/L 95 - 109 09/28/2015 [facility] ELECTROLYTES Sodium Lvl 136 meq/L 135 - 145 09/28/2015 [facility] ELECTROLYTES Creatinine Lvl 0.98 mg/dL 0.50 - 1.40 09/28/2015 [facility] ELECTROLYTES BUN 16 mg/dL 7 - 22 09/28/2015 [facility] ELECTROLYTES Glucose Lvl 107 mg/dL 70 - 99 09/28/2015 [facility] ELECTROLYTES Calcium Lvl 6.5 mg/dL 8.5 - 10.5 09/28/2015 Result Comment: Critical Result(s) called to Precious at 09/28/2015 08:08 by PIETER. Read back OK. [facility] HEMATOLOGY Monocytes # 1.4 K/CMM 0.0 - 0.8 09/28/2015 [facility] HEMATOLOGY Lymphocytes # 2.6 K/CMM 1.0 - 5.5 09/28/2015 [facility] HEMATOLOGY Eosinophils # 0.2 K/CMM 0.0 - 0.5 09/28/2015 [facility] HEMATOLOGY Basophils # 0.1 K/CMM 0.0 - 0.2 09/28/2015 [facility] HEMATOLOGY Segs-Bands # 7.9 K/CMM 1.5 - 8.1 09/28/2015 [facility] HEMATOLOGY Lymphocytes 21.4 % 20.0 - 40.0 09/28/2015 [facility] HEMATOLOGY Basophils 0.7 % 0.0 - 1.0 09/28/2015 [facility] HEMATOLOGY Monocytes 11.4 % 2.0 - 12.0 09/28/2015 [facility] HEMATOLOGY Eosinophils 1.3 % 0.0 - 4.0 09/28/2015 [facility] HEMATOLOGY Segs 65.2 % 45.0 - 75.0 09/28/2015 [facility] HEMATOLOGY Hct 38.2 % 42.0 - 54.0 09/28/2015 [facility] HEMATOLOGY RBC 4.59 M/CMM 4.70 - 6.10 09/28/2015 [facility] HEMATOLOGY Hgb 12.9 g/dL 14.0 - 18.0 09/28/2015 [facility] HEMATOLOGY RDW 14.4 % 11.5 - 14.5 09/28/2015 [facility] HEMATOLOGY Platelet 264 K/CMM 133 - 450 09/28/2015 [facility] HEMATOLOGY MPV 8.9 fL 7.4 - 10.4 09/28/2015 [facility] HEMATOLOGY MCH 28.0 pg 27.0 - 31.0 09/28/2015 [facility] HEMATOLOGY MCHC 33.7 g/dL 32.0 - 36.0 09/28/2015 [facility] HEMATOLOGY MCV 83.2 fL 80.0 - 94.0 09/28/2015 [facility] HEMATOLOGY WBC 12.1 K/CMM 3.7 - 10.4 09/28/2015 [facility] ELECTROLYTES AGAP 13.5 meq/L 10.0 - 20.0 09/27/2015 [facility] ELECTROLYTES eGFR 84 mL/min/1.73m2 09/27/2015 Result Comment: The eGFR is calculated using the CKD-EPI formula. In most young, healthy individuals the eGFR will be >90 mL/min/1.73m2. The eGFR declines with age. An eGFR of 60-89 may be normal in some populations, particularly the elderly, for whom the CKD-EPI formula has not been extensively validated. Use of the eGFR is not recommended in the following populations: Individuals with unstable creatinine concentrations, including patients and those with serious co-morbid conditions. Patients with extremes in muscle mass or diet. The data above are obtained from the National Kidney Disease Education Program (NKDEP) which additionally recommends that when the eGFR is used in patients with extremes of body mass index for purposes of drug dosing, the eGFR should be multiplied by the estimated BMI. [facility] ELECTROLYTES CO2 26 meq/L 24 - 32 09/27/2015 [facility] ELECTROLYTES Chloride Lvl 104 meq/L 95 - 109 09/27/2015 [facility] ELECTROLYTES Potassium Lvl 3.5 meq/L 3.5 - 5.1 09/27/2015 [facility] ELECTROLYTES Glucose Lvl 113 mg/dL 70 - 99 09/27/2015 [facility] ELECTROLYTES Creatinine Lvl 0.97 mg/dL 0.50 - 1.40 09/27/2015 [facility] ELECTROLYTES BUN 16 mg/dL 7 - 22 09/27/2015 [facility] ELECTROLYTES Sodium Lvl 140 meq/L 135 - 145 09/27/2015 [facility] ELECTROLYTES Calcium Lvl 8.2 mg/dL 8.5 - 10.5 09/27/2015 [facility] HEMATOLOGY Segs 77.5 % 45.0 - 75.0 09/27/2015 [facility] HEMATOLOGY Lymphocytes 11.7 % 20.0 - 40.0 09/27/2015 [facility] HEMATOLOGY Monocytes 10.7 % 2.0 - 12.0 09/27/2015 [facility] HEMATOLOGY Basophils 0.1 % 0.0 - 1.0 09/27/2015 [facility] HEMATOLOGY Segs-Bands # 9.0 K/CMM 1.5 - 8.1 09/27/2015 [facility] HEMATOLOGY Lymphocytes # 1.4 K/CMM 1.0 - 5.5 09/27/2015 [facility] HEMATOLOGY Monocytes # 1.2 K/CMM 0.0 - 0.8 09/27/2015 [facility] HEMATOLOGY MPV 9.2 fL 7.4 - 10.4 09/27/2015 [facility] HEMATOLOGY Platelet 238 K/CMM 133 - 450 09/27/2015 [facility] HEMATOLOGY RDW 14.4 % 11.5 - 14.5 09/27/2015 [facility] HEMATOLOGY MCV 82.8 fL 80.0 - 94.0 09/27/2015 [facility] HEMATOLOGY MCHC 33.4 g/dL 32.0 - 36.0 09/27/2015 [facility] HEMATOLOGY MCH 27.7 pg 27.0 - 31.0 09/27/2015 [facility] HEMATOLOGY Hgb 12.4 g/dL 14.0 - 18.0 09/27/2015 [facility] HEMATOLOGY Hct 37.2 % 42.0 - 54.0 09/27/2015 [facility] HEMATOLOGY WBC 11.7 K/CMM 3.7 - 10.4 09/27/2015 [facility] HEMATOLOGY RBC 4.49 M/CMM 4.70 - 6.10 09/27/2015 [facility] SPECIAL CHEMISTRY Hgb A1C 6.2 % <=5.6 % 09/27/2015 [facility] ELECTROLYTES Chloride Lvl 105 meq/L 95 - 109 09/26/2015 [facility] ELECTROLYTES Sodium Lvl 141 meq/L 135 - 145 09/26/2015 [facility] ELECTROLYTES Potassium Lvl 3.5 meq/L 3.5 - 5.1 09/26/2015 [facility] ELECTROLYTES BUN 13 mg/dL 7 - 22 09/26/2015 [facility] ELECTROLYTES Creatinine Lvl 1.00 mg/dL 0.50 - 1.40 09/26/2015 [facility] ELECTROLYTES Glucose Lvl 96 mg/dL 70 - 99 09/26/2015 [facility] ELECTROLYTES Calcium Lvl 8.3 mg/dL 8.5 - 10.5 09/26/2015 [facility] ELECTROLYTES CO2 27 meq/L 24 - 32 09/26/2015 [facility] ELECTROLYTES eGFR 80 mL/min/1.73m2 09/26/2015 Result Comment: The eGFR is calculated using the CKD-EPI formula. In most young, healthy individuals the eGFR will be >90 mL/min/1.73m2. The eGFR declines with age. An eGFR of 60-89 may be normal in some populations, particularly the elderly, for whom the CKD-EPI formula has not been extensively validated. Use of the eGFR is not recommended in the following populations: Individuals with unstable creatinine concentrations, including patients and those with serious co-morbid conditions. Patients with extremes in muscle mass or diet. The data above are obtained from the National Kidney Disease Education Program (NKDEP) which additionally recommends that when the eGFR is used in patients with extremes of body mass index for purposes of drug dosing, the eGFR should be multiplied by the estimated BMI. [facility] ELECTROLYTES AGAP 12.5 meq/L 10.0 - 20.0 09/26/2015 [facility] HEMATOLOGY Platelet 220 K/CMM 133 - 450 09/26/2015 [facility] HEMATOLOGY RDW 14.2 % 11.5 - 14.5 09/26/2015 [facility] HEMATOLOGY MPV 9.4 fL 7.4 - 10.4 09/26/2015 [facility] HEMATOLOGY RBC 4.50 M/CMM 4.70 - 6.10 09/26/2015 [facility] HEMATOLOGY WBC 9.2 K/CMM 3.7 - 10.4 09/26/2015 [facility] HEMATOLOGY MCHC 33.8 g/dL 32.0 - 36.0 09/26/2015 [facility] HEMATOLOGY MCV 83.8 fL 80.0 - 94.0 09/26/2015 [facility] HEMATOLOGY Hct 37.7 % 42.0 - 54.0 09/26/2015 [facility] HEMATOLOGY Hgb 12.7 g/dL 14.0 - 18.0 09/26/2015 [facility] HEMATOLOGY MCH 28.3 pg 27.0 - 31.0 09/26/2015 [facility] HEMATOLOGY Monocytes # 1.0 K/CMM 0.0 - 0.8 09/26/2015 [facility] HEMATOLOGY Eosinophils # 0.1 K/CMM 0.0 - 0.5 09/26/2015 [facility] HEMATOLOGY Basophils # 0.1 K/CMM 0.0 - 0.2 09/26/2015 [facility] HEMATOLOGY Eosinophils 1.4 % 0.0 - 4.0 09/26/2015 [facility] HEMATOLOGY Segs-Bands # 5.9 K/CMM 1.5 - 8.1 09/26/2015 [facility] HEMATOLOGY Basophils 0.6 % 0.0 - 1.0 09/26/2015 [facility] HEMATOLOGY Monocytes 10.9 % 2.0 - 12.0 09/26/2015 [facility] HEMATOLOGY Lymphocytes # 2.2 K/CMM 1.0 - 5.5 09/26/2015 [facility] HEMATOLOGY Segs 63.8 % 45.0 - 75.0 09/26/2015 [facility] HEMATOLOGY Lymphocytes 23.3 % 20.0 - 40.0 09/26/2015 [facility] CHEM PANEL Phosphorus 3.2 mg/dL 2.5 - 4.5 09/25/2015 [facility] CHEM PANEL Albumin Lvl 3.0 g/dL 3.5 - 5.0 09/25/2015 [facility] BLOOD BANK RESULTS ABO/Rh O POS 09/25/2015 [facility] BLOOD BANK RESULTS Antibody Scrn Negative (09/25/15 1:11 AM) 09/25/2015 [facility] URINE AND STOOL UA Nitrite Negative (09/24/15 4:52 AM) Negative 09/24/2015 [facility] URINE AND STOOL UA Leuk Est Negative (09/24/15 4:52 AM) Negative 09/24/2015 [facility] URINE AND STOOL UA Blood Negative (09/24/15 4:52 AM) Negative 09/24/2015 [facility] URINE AND STOOL UA Sq Epi None Seen 09/24/2015 [facility] URINE AND STOOL UA Mucus Few /LPF None Seen /LPF 09/24/2015 [facility] URINE AND STOOL UA Urobilinogen <=1.0 mg/dL 0.1 - 1.0 09/24/2015 [facility] URINE AND STOOL UA WBC null 0 - 5 09/24/2015 [facility] URINE AND STOOL UA Spec Grav 1.020 <=1.030 09/24/2015 [facility] URINE AND STOOL UA Color Yellow *NA* (09/24/15 4:52 AM) Yellow 09/24/2015 [facility] URINE AND STOOL UA Turbidity Clear (09/24/15 4:52 AM) Clear 09/24/2015 [facility] URINE AND STOOL UA pH 5.5 5.0 - 8.0 09/24/2015 [facility] URINE AND STOOL UA Protein 10 mg/dL Negative mg/dL 09/24/2015 [facility] URINE AND STOOL UA Bili Negative *NA* (09/24/15 4:52 AM) Negative 09/24/2015 [facility] URINE AND STOOL UA Glucose Negative mg/dL Negative mg/dL 09/24/2015 [facility] URINE AND STOOL UA Ketones Negative mg/dL Negative mg/dL 09/24/2015 [facility] CHEM PANEL Phosphorus 2.9 mg/dL 2.5 - 4.5 09/24/2015 [facility] CHEM PANEL Magnesium Lvl 2.2 mg/dL 1.8 - 2.4 09/24/2015 [facility] CHEM PANEL AST 38 unit/L 0 - 37 09/24/2015 [facility] CHEM PANEL Total Protein 6.7 g/dL 6.4 - 8.4 09/24/2015 [facility] CHEM PANEL Albumin Lvl 3.5 g/dL 3.5 - 5.0 09/24/2015 [facility] CHEM PANEL ALT 49 unit/L 0 - 65 09/24/2015 [facility] CHEM PANEL Bili Total 0.5 mg/dL 0.2 - 1.3 09/24/2015 [facility] CHEM PANEL Alk Phos 76 unit/L 39 - 136 09/24/2015 [facility] CHEM PANEL Globulin 3.2 g/dL 2.0 - 4.0 09/24/2015 [facility] CHEM PANEL A/G Ratio 1.1 0.7 - 1.6 09/24/2015 [facility] CHEM PANEL B/C Ratio 15 6 - 25 09/24/2015 [facility] HEMATOLOGY Eosinophils 0.1 % 0.0 - 4.0 09/24/2015 [facility] HEMATOLOGY Basophils # 0.1 K/CMM 0.0 - 0.2 09/24/2015 [facility] HEMATOLOGY PTT 35.7 s 22.9 - 35.8 09/24/2015 [facility] SPECIAL CHEMISTRY Hgb A1C 6.4 % <=5.6 % 09/24/2015 [facility] Elbow wo contrast CT Elbow wo contrast CT EXAM: CT RIGHT ELBOW WITHOUT CONTRAST, WITH 3-D DATE: 09/24/2015 12:10 AM CDT INDICATION: Pain from a fall COMPARISON: Right elbow radiographs 09/23/2015 TECHNIQUE: Volumetric CT acquisition of the right elbow without contrast. Axial, sagittal and coronal reformats. 3-D volume rendered images. IV contrast: None. DLP: 400 mGy-cm DISCUSSION: Again seen is a comminuted proximal ulnar metaphyseal fracture, with a 4 cm volarly displaced free fragment. Additional 2 cm fragment is displaced dorsally laterally and lies dorsomedial to the radial head. An obliquely oriented fracture line extends through the volar aspect of the coronoid process a 9 mm tall fracture fragment. Intra-articular osseous fragments measuring 15 mm and 6 mm on the volar aspect of the radial head, of likely fracture fragments of the volar medial aspect of the radial head (image [id number] and series 9). A 4 mm osseous fragment is also seen on the volar aspect of the trochlea, uncertain donor site. Tiny osseous fragment of the tip of the medial epicondyle probably chronic. Persistent mild widening of the radiocapitellar joint is present, with mild dorsal lateral subluxation. Elbow joint effusion and soft tissue swelling is present about the left elbow. Posterior splint is present about the left elbow. IMPRESSION: 1. Comminuted radial head fracture, with at least 2 fracture fragments measuring 15 mm and 6 mm seen on the volar aspect of the radial head. 2. Mild widening of the radiocapitellar joint space with mild dorsal lateral subluxation. 3. Minimally displaced fracture of the capitellum on the lateral dorsal aspect. 4. Nondisplaced coronoid process fracture with a 9 mm tall fracture fragment. 5. Comminuted, displaced and angulated proximal ulnar metaphyseal fracture, with a 4 cm displaced butterfly fragment. 6. A 4 mm osseous fragment is also seen on the volar aspect of the trochlea, of uncertain donor site. 7. Tiny osseous fragment of the tip of the medial epicondyle, probably chronic. 09/24/2015 - - This report was dictated by a Programming Coordinator/Fellow. I have personally reviewed the images as well as the Resident's interpretation and agree with the findings. Read by: Sunshine Bell MD Resident: Sunshine Bell MD Dictated Date/time: 09/24/15 07:03 Electronically Signed by: Duke Ferraro 09/24/15 07:51 FINAL REPORT [facility] Elbow wo contrast CT Elbow wo contrast CT EXAM: CT LEFT ELBOW WITHOUT CONTRAST INDICATION: Left elbow pain after fall. TECHNIQUE: Noncontrast helical CT imaging left elbow with multiplanar reformats. Additional 3-D volume rendered images were obtained on scanner workstation. DLP: 827 mGy*cm COMPARISON: Abdominal radiographs 09/24/2015. FINDINGS: There is satisfactory alignment of the elbow. No fracture of the distal humerus. There is an impacted nondisplaced fracture of the radial neck without extension to the articular surface. The radial head is angulated by 20 degrees. There is additional small nondisplaced fracture tip of the conoid process, which measures 9 mm from apex to base (series 8 image 44). Moderate elbow joint effusion is present. There are 2 tiny bone fragments dorsal to the neck of the radius with additional tiny bone fragment adjacent to the supinator crest. Mild elbow soft tissue swelling. IMPRESSION: 1. Impacted nondisplaced radius neck fracture with approximately 20 degrees angulation of the radius articular surface. 2. Small nondisplaced coronoid process fracture measuring 9 mm from apex to base. 3. Tiny bone fragment adjacent to the supinator crest, suspicious for avulsion of the lateral ulnar collateral ligament. 4. Two tiny intraarticular bone fragments posterior to the neck of the radius. 09/24/2015 - - Read by: Cj Mak MD Dictated Date/time: 09/24/15 07:07 Electronically Signed by: Cj Mak MD 09/24/15 07:13 FINAL REPORT [facility] Elbow 3 views DX Elbow 3 views DX EXAM: XR RIGHT ELBOW 3 VIEWS DATE: 09/24/2015 12:01 AM CDT INDICATION: Post-Reduction COMPARISON: 09/24/2015 right elbow radiograph at 2304 hours TECHNIQUE: AP, lateral and oblique radiographs of the right elbow. DISCUSSION: There has been interval casting and reduction of the previously seen radiocapitellar dislocation. There is slight improvement in the alignment of the fragments of the proximal ulnar comminuted fracture, with residual 2 cortical widths lateral and volar displacement of the distal fragment, and mild apex dorsal angulation. A free butterfly fragment of the ulnar metaphysis remains mildly anteriorly displaced. Moderate soft tissue swelling is present about the right elbow. IMPRESSION: Satisfactory alignment of the radiocapitellar joint and improved alignment of the comminuted proximal ulnar fracture status post closed reduction and cast placement. 09/24/2015 - - This report was dictated by a Programming Coordinator/Fellow. I have personally reviewed the images as well as the Resident's interpretation and agree with the findings. Read by: Sunshine Bell MD Resident: Sunshine Bell MD Dictated Date/time: 09/24/15 00:41 Electronically Signed by: Duke Ferraro 09/24/15 01:31 FINAL REPORT [facility] Tibia fibula series DX Tibia fibula series DX EXAM: XR RIGHT TIBIA 2 VIEWS DATE: 09/23/2015 11:33 PM CDT INDICATION: Pain from a fall COMPARISON: None. TECHNIQUE: AP and lateral radiographs of the right tibia. DISCUSSION: No acute fracture or malalignment is identified. Nonspecific mature-appearing periosteal reaction is present along shafts of both the tibia and fibula. There is partially visualized tricompartmental osteophytosis in the knee. Calcaneal enthesophytes are present. Diffuse soft tissue swelling seen. IMPRESSION: 1. No acute fracture or dislocation. 2. Diffuse soft tissue swelling. 09/24/2015 - - This report was dictated by a Programming Coordinator/Fellow. I have personally reviewed the images as well as the Resident's interpretation and agree with the findings. Read by: Sunshine Bell MD Resident: Sunshine Bell MD Dictated Date/time: 09/24/15 01:25 Electronically Signed by: Duke Ferraro 09/24/15 02:49 FINAL REPORT [facility] Elbow 3 views DX Elbow 3 views DX EXAM: XR LEFT ELBOW 3 VIEWS DATE: 09/24/2015 12:09 AM CDT INDICATION: Pain from a fall COMPARISON: Left elbow radiographs 09/23/2015 at 1835 hours TECHNIQUE: AP, lateral and oblique radiographs of the left elbow. DISCUSSION: Again seen is a mildly displaced radial neck fracture, with mild widening of the radiocapitellar joint. A 5 mm ossific fragment projects within the joint space. Nondisplaced coronoid process fracture seen. Elbow joint effusion and soft tissue swelling is identified. Posterior gutter splint seen. IMPRESSION: 1. Mildly displaced radial neck fracture. Mild widening of the radiocapitellar joint space may be related to fracture impaction. 2. Intra-articular osseous body within the elbow joint. 3. Nondisplaced coronoid process fracture. 4. Elbow joint effusion and soft tissue swelling. 09/24/2015 - - This report was dictated by a Programming Coordinator/Fellow. I have personally reviewed the images as well as the Resident's interpretation and agree with the findings. Read by: Sunshine Bell MD Resident: Sunshine Bell MD Dictated Date/time: 09/24/15 01:28 Electronically Signed by: Duke Ferraro 09/24/15 02:54 FINAL REPORT [facility] Elbow 3 views DX Elbow 3 views DX EXAM: XR RIGHT ELBOW 3 VIEWS DATE: 09/23/2015 11:13 PM CDT INDICATION: Pain from a fall COMPARISON: 09/23/2015 at 1645 hours TECHNIQUE: AP, lateral and oblique radiographs of the right elbow DISCUSSION: Overlying splint has been removed. There is mild increase in the radiocapitellar subluxation. There is no significant change in previously seen comminuted fracture of the proximal ulnar metaphysis, with mild dorsal and lateral apex angulation. Mild deformity of the radial head is age indeterminate. Moderate soft tissue is present about the right elbow. IMPRESSION: 1. Interval removal of splint, with mildly worsening of the dorsolateral subluxation of the radiocapitellar joint. 2. No significant change in comminuted proximal ulnar metaphyseal fracture. 3. Deformity of the radial head is age indeterminate. This may be better evaluated on CT. 09/23/2015 - - This report was dictated by a Programming Coordinator/Fellow. I have personally reviewed the images as well as the Resident's interpretation and agree with the findings. Read by: Sunshine Bell MD Resident: Sunshine Bell MD Dictated Date/time: 09/24/15 00:23 Electronically Signed by: Duke Ferraro 09/24/15 02:40 FINAL REPORT [facility] HEMATOLOGY PTT 37.2 s 22.9 - 35.8 09/23/2015 [facility] HEMATOLOGY PT 13.6 s 12.0 - 14.7 09/23/2015 [facility] HEMATOLOGY INR 1.01 0.85 - 1.17 09/23/2015 [facility] Elbow 3 views DX Elbow 3 views DX EXAM: XR LEFT ELBOW 3 VIEWS DATE: 09/23/2015 6:35 PM CDT INDICATION: Pain Post Trauma COMPARISON: None available. TECHNIQUE: AP, lateral and oblique radiographs of the left elbow FINDINGS: There is a mildly displaced fracture at the left radial neck. The radiocapitellar joint remains aligned. Small joint effusion is present. IMPRESSION: Mildly displaced left radial neck fracture. Small joint effusion is present. 09/23/2015 - - This report was dictated by a Programming Coordinator/Fellow. I have personally reviewed the images as well as the Resident's interpretation and agree with the findings. Read by: Melinda Song MD Resident: Melinda Song MD Dictated Date/time: 09/23/15 19:14 Electronically Signed by: Jey Haq MD 09/23/15 19:21 FINAL REPORT [facility] Humerus 2 views DX Humerus 2 views DX EXAM: XR RIGHT ELBOW 3 VIEWS EXAM: XR RIGHT HUMERUS 2 VIEWS DATE: 09/23/2015 5:01 PM CDT INDICATION: Pain Post Trauma COMPARISON: Outside radiographs from the same date at 11:37 hours TECHNIQUE: AP, lateral and oblique radiographs of the right elbow. Two views of the right humerus. FINDINGS: There has been splinting of the left elbow. There is a comminuted fracture of the proximal ulnar metaphysis, with mild dorsal angulation and a displaced fragment of bone. The coronoid is not completely evaluated. The radial head remains dislocated. The humerus remains intact. IMPRESSION: Comminuted fracture of the proximal ulna and dislocation of the radial head. 09/23/2015 - - This report was dictated by a Programming Coordinator/Fellow. I have personally reviewed the images as well as the Resident's interpretation and agree with the findings. Read by: Melinda Song MD Resident: Melinda Song MD Dictated Date/time: 09/23/15 17:33 Electronically Signed by: Jey Hqa MD 09/23/15 19:21 FINAL REPORT [facility] Elbow 3 views DX Elbow 3 views DX EXAM: XR RIGHT ELBOW 3 VIEWS EXAM: XR RIGHT HUMERUS 2 VIEWS DATE: 09/23/2015 5:01 PM CDT INDICATION: Pain Post Trauma COMPARISON: Outside radiographs from the same date at 11:37 hours TECHNIQUE: AP, lateral and oblique radiographs of the right elbow. Two views of the right humerus. FINDINGS: There has been splinting of the left elbow. There is a comminuted fracture of the proximal ulnar metaphysis, with mild dorsal angulation and a displaced fragment of bone. The coronoid is not completely evaluated. The radial head remains dislocated. The humerus remains intact. IMPRESSION: Comminuted fracture of the proximal ulna and dislocation of the radial head. 09/23/2015 - - This report was dictated by a Programming Coordinator/Fellow. I have personally reviewed the images as well as the Resident's interpretation and agree with the findings. Read by: Melinda Song MD Resident: Melinda Song MD Dictated Date/time: 09/23/15 17:33 Electronically Signed by: Jey Haq MD 09/23/15 19:21 FINAL REPORT [facility] Vital Signs Vital Sign Value Date Comments Source Heart Rate 80 09/28/2015 [facility] Temperature Oral (F) 98.0 F 09/28/2015 [facility] Systolic (mm Hg) 125 09/28/2015 [facility] Diastolic (mm Hg) 75 09/28/2015 [facility] Respitory Rate 20 09/28/2015 [facility] Systolic (mm Hg) 126 09/28/2015 [facility] Diastolic (mm Hg) 77 09/28/2015 [facility] Respitory Rate 16 09/28/2015 [facility] Heart Rate 93 09/28/2015 [facility] Temperature Oral (F) 98.0 F 09/28/2015 [facility] Respitory Rate 18 09/28/2015 [facility] Systolic (mm Hg) 117 09/28/2015 [facility] Diastolic (mm Hg) 69 09/28/2015 [facility] Heart Rate 78 09/28/2015 [facility] Temperature Oral (F) 98.2 F 09/28/2015 [facility] Weight 140.909 09/24/2015 [facility] Height 180.34 cm 09/24/2015 [facility] BMI Calculated 43.33 09/24/2015 [facility] BMI Calculated 42.63 09/23/2015 [facility] Height 180.34 cm 09/23/2015 [facility] Weight 138.636 09/23/2015 [facility] Encounters Location Location Details Encounter Type Encounter Number Reason For Visit Attending Provider ADM Date DC Date Status Source [facility] Inpatient [id number] Marko Isaacs 09/23/2015 09/28/2015 [facility] Procedures Procedure Code Date Perfomer Comments Source Cholecystectomy [id number] [facility]
--- OUTSIDE RECORDS SUMMARY | 2017-12-25 08:25 | XMS REPORT | Summary of Care ---
Author Author [facility] Organization [facility] Address Unknown Phone Unavailable Encounter SHELLY Matthews(JASWANT) [id number] Date(s): 09/23/15 - 09/28/15 [facility] [address] [employer] provided by [employer] [place] [address]- Discharge Disposition: Home or Self Care Attending Physician: Aggie Jose MD Admitting Physician: Jeff Xiong MD Referring Physician: Marko Isaacs MD Vital Signs 1 2 3 Most recent to oldest [Reference Range]: 180.34 cm (09/24/15 5:00 AM) 180.34 cm (09/23/15 3:32 PM) Height 98.0 DegF (09/28/15 1:18 PM) 98.0 DegF (09/28/15 8:12 AM) 98.2 DegF (09/28/15 3:06 AM) Temperature Oral [96.4-99.1 DegF] 125/75 mmHg (09/28/15 1:18 PM) 126/77 mmHg (09/28/15 8:12 AM) 117/69 mmHg (09/28/15 3:06 AM) Blood Pressure [90-140/60-90 mmHg] 20 BRMIN (09/28/15 1:18 PM) 16 BRMIN (09/28/15 8:12 AM) 18 BRMIN (09/28/15 3:06 AM) Respiratory Rate [14-20 BRMIN] 80 bpm (09/28/15 1:18 PM) 93 bpm (09/28/15 8:12 AM) 78 bpm (09/28/15 3:06 AM) Peripheral Pulse Rate [60-100 bpm] 140.909 kg (09/24/15 5:00 AM) 138.636 kg (09/23/15 3:32 PM) Weight 43.33 m2 (09/24/15 5:00 AM) 42.63 m2 (09/23/15 3:32 PM) Body Mass Index Problem List Condition Effective Dates Status Health Status Informant GERD Resolved (gastroesophageal reflux disease)(Confirmed) Hypertension(Confirm Resolved ed) Allergies, Adverse Reactions, Alerts Substance Reaction Severity Status NKDA Active Medications acetaminophen 650 mg, 2 tab, Route: PO, Drug form: TAB, Q4H, Dosing Weight 138.636, kg, PRN Pa in 1-3/Temp > 100.4 F, Start date: 09/24/15 2:12:00 CDT, Duration: 30 day, Stop date: 10/24/15 2:11:00 CDT Notes: Do not exceed 4 gm/day. (Same as: Tylenol) Start Date: 09/24/15 Stop Date: 09/26/15 Status: Discontinued acetaminophen-hydrocodone 325 mg-5 mg oral tablet 2 tab, Route: PO, Drug Form: TAB, Dosing Weight 138.636, kg, Q4H, PRN Pain Score 7-10, Start date: 09/26/15 15:56:00 CDT, Duration: 30 day, Stop date: 10/26/15 15:55:00 CDT Notes: (Same as: [place] 325/5) Do not exceed 4gm/day of acetaminophen. Start Date: 09/26/15 Stop Date: 09/26/15 Status: Discontinued acetaminophen-hydrocodone 325 mg-5 mg oral tablet 1 tab, Route: PO, Drug Form: TAB, Dosing Weight 138.636, kg, Q4H, PRN Pain Score 4-6, Start date: 09/24/15 2:12:00 CDT, Duration: 30 day, Stop date: 10/24/15 2: 11:00 CDT Notes: (Same as: [place] 325/5) Do not exceed 4gm/day of acetaminophen. Start Date: 09/24/15 Stop Date: 09/26/15 Status: Discontinued amLODIPine 10 mg, 1 tab, Route: PO, Drug form: TAB, Daily, Dosing Weight 138.636, kg, Start date: 09/24/15 9:00:00 CDT, Duration: 30 day, Stop date: 10/23/15 9:00:00 CDT Notes: (Same as: Norvasc) Start Date: 09/24/15 Stop Date: 09/28/15 Status: Discontinued amLODIPine 10 mg oral tablet 10 mg=1 tab, PO, Daily, # 30 tab, 0 Refill(s) Start Date: 09/28/15 Status: Ordered Ancef 2 gm, Route: IVPB, ONCE, Dosing Weight 140.909, kg, Start date: 09/26/15 10:18:0 0 CDT, Duration: 1 doses or times, Stop date: 09/26/15 10:18:00 CDT, Surgical Pr ophylaxis Only; For patients < 120 kg Start Date: 09/26/15 Stop Date: 09/26/15 Status: Completed Ancef + sodium chloride 0.9% INJ 100 mL 2 gm, Route: IVPB, Drug form: INJ, [id number], Dosing Weight 140.909, kg, Start date : 09/26/15 13:00:00 CDT, Duration: 3 doses or times, Stop date: 09/27/15 10:00:0 0 CDT Notes: (Same As: Ancef, Tigre)Cefazolin FOR IV SET ONLY MEDICATION WAS TE Product Size: 1000 mgProduct Wasted: ___ mg Start Date: 09/26/15 Stop Date: 09/27/15 Status: Completed ANES flumazenil 0.2 mg, 2 mL, Route: IVP, Drug form: INJ, PRN, Dosing Weight 140.909, kg, PRN Be nzodiazepine Reversal, Initial dose, Start date: 09/26/15 9:40:00 CDT, Duration: 1 day, Stop date: 09/27/15 9:39:00 CDT Notes: (Same as: Romazicon) Start Date: 09/26/15 Stop Date: 09/26/15 Status: Discontinued ANES flumazenil 0.2 mg, 2 mL, Route: IVP, Drug form: INJ, PRN, Dosing Weight 140.909, kg, PRN Be nzodiazepine Reversal, Initial dose, Start date: 09/26/15 13:16:00 CDT, Stop mindi e: 09/27/15 0:00:00 CDT Notes: (Same as: Romazicon) Start Date: 09/26/15 Stop Date: 09/27/15 Status: Completed ANES hydrALAZINE 10 mg, 0.5 mL, Route: IVP, Drug form: INJ, Q20Min, Dosing Weight 140.909, kg, CO N Elevated BP, Start date: 09/26/15 13:16:00 CDT, Duration: 2 doses or times, St op date: 09/27/15 0:00:00 CDT Notes: (Same as: Apresoline)Push over 5 minutes Start Date: 09/26/15 Stop Date: 09/26/15 Status: Discontinued ANES HYDROmorphone 0.5 mg, 0.25 mL, Route: IVP, Drug form: INJ, Q5Min, Dosing Weight 140.909, kg, P RN Pain Score 7-10, Start date: 09/26/15 9:40:00 CDT, Duration: 4 doses or times , Stop date: Limited # of times Notes: (Same as: Dilaudid) Start Date: 09/26/15 Stop Date: 09/26/15 Status: Discontinued ANES labetalol 10 mg, 2 mL, Route: IVP, Drug form: INJ, Q5Min, Dosing Weight 140.909, kg, PRN E levated BP, Start date: 09/26/15 13:16:00 CDT, Duration: 5 doses or times, Stop date: 09/27/15 0:00:00 CDT Start Date: 09/26/15 Stop Date: 09/26/15 Status: Discontinued ANES naloxone 0.4 mg, 1 mL, Route: IVP, Drug form: INJ, Q2MIN, Dosing Weight 140.909, kg, PRN Narcotic Reversal, Start date: 09/26/15 9:40:00 CDT, Duration: 8 doses or times, Stop date: Limited # of times Notes: (Same as: Narcan) Start Date: 09/26/15 Stop Date: 09/26/15 Status: Discontinued ANES naloxone 0.4 mg, 1 mL, Route: IVP, Drug form: INJ, Q2MIN, Dosing Weight 140.909, kg, PRN Narcotic Reversal, Start date: 09/26/15 13:16:00 CDT, Duration: 8 doses or times , Stop date: 09/27/15 0:00:00 CDT Notes: Same as Narcan Start Date: 09/26/15 Stop Date: 09/27/15 Status: Completed ANES ondansetron 4 mg, 2 mL, Route: IVP, Drug form: INJ, ONCE, Dosing Weight 140.909, kg, PRN Juvenal sea & Vomiting, Start date: 09/26/15 9:40:00 CDT Notes: (Same as: Zofran) MEDICATION WASTE Product Size: 4 mgProduct Was tim: ___ mg Start Date: 09/26/15 Stop Date: 09/26/15 Status: Discontinued ANES ondansetron 4 mg, 2 mL, Route: IVP, Drug form: INJ, ONCE, Dosing Weight 140.909, kg, PRN Juvenal sea & Vomiting, Start date: 09/26/15 13:16:00 CDT Notes: (Same as: Zofran) MEDICATION WASTE Product Size: 4 mgProduct Was tim: ___ mg Start Date: 09/26/15 Stop Date: 09/28/15 Status: Discontinued ANES oxyCODONE 5 mg, 1 tab, Route: PO, Drug form: TAB, Q4H, Dosing Weight 140.909, kg, PRN Pain Score 4-6, Start date: 09/26/15 9:40:00 CDT, Duration: 1 day, Stop date: 9:39:00 CDT Notes: (Same as: Roxicodone) Start Date: 09/26/15 Stop Date: 09/26/15 Status: Discontinued aspirin 325 mg tablet, enteric coated 325 mg, 1 tab, Route: PO, Drug form: ECTAB, [id number], Dosing Weight 140.909, kg, Priority: STAT, Start date: 09/28/15 11:18:00 CDT, Duration: 30 day, Stop date: 10/27/15 23:18:00 CDT Notes: (Do Not Crush) Do not crush or chew. Start Date: 09/28/15 Stop Date: 09/28/15 Status: Discontinued aspirin 325 mg tablet, enteric coated 325 mg=1 tab, PO, [id number], # 28 tab, 0 Refill(s) Start Date: 09/28/15 Status: Ordered Benadryl 25 mg, 1 cap, Route: PO, Drug form: CAP, ONCE, Dosing Weight 140.909, kg, Start date: 09/24/15 20:57:00 CDT, Stop date: 09/24/15 20:57:00 CDT Notes: (Same as: Benadryl) Start Date: 09/24/15 Stop Date: 09/24/15 Status: Completed Dilaudid 1 mg, 0.5 mL, Route: IVP, Drug form: INJ, ONCE, Dosing Weight 138.636, kg, Prior ity: STAT, Start date: 09/23/15 19:50:00 CDT, Stop date: 09/23/15 19:50:00 CDT Notes: Same as: Dilaudid Start Date: 09/23/15 Stop Date: 09/23/15 Status: Completed docusate 100 mg, 1 cap, Route: PO, Drug form: CAP, BID, Dosing Weight 138.636, kg, PRN Co nstipation, Start date: 09/24/15 2:12:00 CDT, Duration: 30 day, Stop date: 10/23 2:11:00 CDT Notes: (Same as: Colace) (Do Not Crush) Start Date: 09/24/15 Stop Date: 09/28/15 Status: Discontinued docusate sodium 100 mg oral capsule 100 mg=1 cap, PO, BID, PRN Constipation, # 60 cap, 0 Refill(s) Start Date: 09/28/15 Status: Ordered docusate sodium 100 mg oral capsule 100 mg, 1 cap, Route: PO, Drug form: CAP, BID, Dosing Weight 140.909, kg, Start date: 09/24/15 9:00:00 CDT, Duration: 30 day, Stop date: 10/23/15 17:00:00 CDT Notes: (Same as: Colace) (Do Not Crush) Start Date: 09/24/15 Stop Date: 09/28/15 Status: Discontinued enalapril 0.625 mg, Route: IVP, ONCE, Dosing Weight 140.909, kg, Start date: 09/26/15 13:2 9:00 CDT, Stop date: 09/26/15 13:29:00 CDT Start Date: 09/26/15 Stop Date: 09/26/15 Status: Completed enalaprilat 0.625 mg, 0.5 mL, Route: IV, Drug form: INJ, ONCE, Dosing Weight 138.636, kg, St art date: 09/24/15 0:01:00 CDT, Stop date: 09/24/15 0:01:00 CDT Notes: (Same as: Vasotec-IV) Start Date: 09/24/15 Stop Date: 09/24/15 Status: Completed enoxaparin 40 mg, 0.4 mL, Route: SUB-Q, Drug form: INJ, [id number], Dosing Weight 138.636, kg , Consider for obese patients, Start date: 09/24/15 3:00:00 CDT, Duration: 30 da y, Stop date: 10/23/15 17:00:00 CDT Notes: (Same as: Lovenox) Start Date: 09/24/15 Stop Date: 09/28/15 Status: Discontinued Flomax 0.4 mg, 1 cap, Route: PO, Drug form: CAP, Daily, Dosing Weight 138.636, kg, Star t date: 09/24/15 9:00:00 CDT, Duration: 30 day, Stop date: 10/23/15 9:00:00 CDT Notes: (Same As: Flomax) "Do Not Crush" Start Date: 09/24/15 Stop Date: 09/28/15 Status: Discontinued Flomax 0.4 mg oral capsule 0.4 mg=1 cap, PO, Daily, # 30 cap, 0 Refill(s) Start Date: 09/24/15 Status: Ordered gabapentin 300 mg, 1 cap, Route: PO, Drug form: CAP, Q8Hnow, Dosing Weight 140.909, kg, Sta rt date: 09/26/15 16:00:00 CDT, Duration: 30 day, Stop date: 10/26/15 8:00:00 CD T Notes: (Same as: Neurontin) Start Date: 09/26/15 Stop Date: 09/28/15 Status: Discontinued gabapentin 300 mg oral capsule 300 mg=1 cap, PO, Q8Hnow, # 21 cap, 0 Refill(s) Start Date: 09/28/15 Status: Ordered hydrALAZINE 10 mg, 0.5 mL, Route: IVP, Drug form: INJ, Q4H, Dosing Weight 140.909, kg, PRN H ypertension, Start date: 09/24/15 12:54:00 CDT, Stop date: 10/24/15 12:53:00 CDT Notes: (Same as: Apresoline)Push over 5 minutes Start Date: 09/24/15 Stop Date: 09/28/15 Status: Discontinued hydrochlorothiazide 25 mg, 1 tab, Route: PO, Drug form: TAB, Daily, Dosing Weight 140.909, kg, Start date: 09/25/15 15:00:00 CDT, Duration: 30 day, Stop date: 10/25/15 9:00:00 CDT Notes: (Same as: Hydrodiuril) With food. Start Date: 09/25/15 Stop Date: 09/28/15 Status: Discontinued labetalol 10 mg, 2 mL, Route: IVP, Drug form: INJ, Q15Min, Dosing Weight 140.909, kg, PRN Hypertension, Start date: 09/26/15 17:41:00 CDT, Duration: 3 doses or times, Sto p date: Limited # of times Start Date: 09/26/15 Stop Date: 09/26/15 Status: Discontinued labetalol 10 mg, 2 mL, Route: IVP, Drug form: INJ, Q4H, Dosing Weight 140.909, kg, PRN Oth er -See Comment, Start date: 09/26/15 19:34:00 CDT, Duration: 3 doses or times, Stop date: Limited # of times, For SBP>170 Start Date: 09/26/15 Stop Date: 09/28/15 Status: Discontinued labetalol 20 mg, 4 mL, Route: IVP, Drug form: INJ, ONCE, Dosing Weight 140.909, kg, Start date: 09/26/15 16:17:00 CDT, Stop date: 09/26/15 16:17:00 CDT Start Date: 09/26/15 Stop Date: 09/26/15 Status: Completed labetalol 10 mg, 2 mL, Route: IVP, Drug form: INJ, ONCE, Dosing Weight 140.909, kg, Start date: 09/25/15 14:23:00 CDT, Stop date: 09/25/15 14:23:00 CDT Start Date: 09/25/15 Stop Date: 09/25/15 Status: Completed lactulose 10 g/15 mL oral syrup 10 gm, 15 mL, Route: PO, Drug Form: SYRP, Dosing Weight 140.909, kg, BID, PRN Co nstipation, Start date: 09/27/15 14:55:00 CDT, Duration: 30 day, Stop date: 10/08 11/23 14:54:00 CDT Notes: (Same as:Chronulac) Start Date: 09/27/15 Stop Date: 09/28/15 Status: Discontinued Lasix 40 mg, 4 mL, Route: IVP, Drug form: INJ, ONCE, Dosing Weight 140.909, kg, Start date: 09/26/15 17:36:00 CDT, Stop date: 09/26/15 17:36:00 CDT Notes: (Same as: Lasix) MEDICATION WASTE Product Size: 40 mgProduct Was tim: ___ mg Start Date: 09/26/15 Stop Date: 09/26/15 Status: Completed Lasix 20 mg, 2 mL, Route: IVP, Drug form: INJ, ONCE, Dosing Weight 140.909, kg, Start date: 09/25/15 14:26:00 CDT, Stop date: 09/25/15 14:26:00 CDT Notes: (Same as: Lasix) Start Date: 09/25/15 Stop Date: 09/25/15 Status: Completed Lasix 80 mg, 2 tab, Route: PO, Drug form: TAB, Daily, Dosing Weight 140.909, kg, Start date: 09/27/15 9:00:00 CDT, Duration: 30 day, Stop date: 10/26/15 9:00:00 CDT Notes: (Same as: Lasix) May cause GI upset. Give with food or milk. Start Date: 09/27/15 Stop Date: 09/28/15 Status: Discontinued Lasix 80 mg oral tablet 80 mg=1 tab, PO, Daily, # 90 tab, 0 Refill(s) Start Date: 09/24/15 Status: Ordered lisinopril 40 mg, 2 tab, Route: PO, Drug form: TAB, Daily, Dosing Weight 138.636, kg, Start date: 09/24/15 9:00:00 CDT, Stop date: 10/23/15 9:00:00 CDT Notes: (Same as: Prinivil, Zestril) Start Date: 09/24/15 Stop Date: 09/28/15 Status: Discontinued lisinopril 10 mg oral tablet 10 mg=1 tab, PO, Daily, # 30 tab, 0 Refill(s) Start Date: 09/24/15 Stop Date: 09/28/15 Status: Discontinued lisinopril 20 mg oral tablet 40 mg=2 tab, PO, Daily, 0 Refill(s) Start Date: 09/28/15 Status: Ordered methocarbamol 1,000 mg, 2 tab, Route: PO, Drug form: TAB, Q8H, Dosing Weight 140.909, kg, PRN Muscle Spasms, Start date: 09/26/15 15:36:00 CDT, Duration: 30 day, Stop date: 0 10/26/15 15:35:00 CDT Notes: (Same as:Robaxin) Start Date: 09/26/15 Stop Date: 09/28/15 Status: Discontinued MiraLax 17 gm, 1 pkt, Route: PO, Drug form: PWDR, Daily, Dosing Weight 140.909, kg, Star t date: 09/25/15 16:00:00 CDT, Duration: 30 day, Stop date: 10/25/15 9:00:00 CDT Notes: Dissolve in 8 oz of water or juice.(Same as: Miralax) Start Date: 09/25/15 Stop Date: 09/28/15 Status: Discontinued morphine Sulfate 4 mg, 1 mL, Route: IVP, Drug form: INJ, ONCE, Dosing Weight 138.636, kg, Priorit y: STAT, Start date: 09/23/15 18:36:00 CDT, Stop date: 09/23/15 18:36:00 CDT Notes: (Same as:MORPhine Sulfate) Start Date: 09/23/15 Stop Date: 09/23/15 Status: Completed morphine Sulfate 2 mg, 1 mL, Route: IVP, Drug form: INJ, Q4H, Dosing Weight 138.636, kg, PRN Pain Score 7-10, Start date: 09/24/15 2:12:00 CDT, Duration: 30 day, Stop date: 10/08 08/23 2:11:00 CDT Notes: (Same as:MORPhine Sulfate) Start Date: 09/24/15 Stop Date: 09/27/15 Status: Discontinued nitroglycerin 2% ointment 1 inch, Route: TOP, Drug Form: OINT, Dosing Weight 140.909, kg, Q6H, Start date: 09/26/15 18:00:00 CDT, Duration: 18 hr, Stop date: 09/27/15 6:00:00 CDT Notes: 1 gram is approximately 1 inch of nitroglycerin ointment (20 mg NTG pe r gram) (Same as:Nitro-Bid) Start Date: 09/26/15 Stop Date: 09/27/15 Status: Discontinued [place] 10/325 oral tablet 1 tab, Route: PO, Drug Form: TAB, Dosing Weight 140.909, kg, Q6H, Start date: 6:00:00 CDT, Duration: 30 day, Stop date: 10/24/15 0:00:00 CDT Notes: Do not exceed 4gm/day of acetaminophen. (Same as: [place] 325/10) Start Date: 09/24/15 Stop Date: 09/26/15 Status: Discontinued [place] 5/325 oral tablet 2 tab, Route: PO, Drug Form: TAB, Dosing Weight 140.909, kg, Q4H, PRN Pain Score 7-10, Start date: 09/26/15 15:35:00 CDT, Duration: 30 day, Stop date: 10/26/15 15:34:00 CDT Notes: (Same as: [place] 325/5) Do not exceed 4gm/day of acetaminophen. Start Date: 09/26/15 Stop Date: 09/28/15 Status: Discontinued [place] 5/325 oral tablet 1 tab, Route: PO, Drug Form: TAB, Dosing Weight 140.909, kg, Q4H, PRN Pain Score 4-6, Start date: 09/26/15 15:34:00 CDT, Duration: 30 day, Stop date: 10/26/15 1 5:33:00 CDT Notes: (Same as: [place] 325/5) Do not exceed 4gm/day of acetaminophen. Start Date: 09/26/15 Stop Date: 09/28/15 Status: Discontinued [place] 5/325 oral tablet 2 tab, PO, Q4H, PRN Pain Score 7-10, # 42 tab, 0 Refill(s) Start Date: 09/28/15 Stop Date: 10/05/15 Status: Ordered ondansetron 4 mg, 2 mL, Route: IVP, Drug form: INJ, Q6H, Dosing Weight 138.636, kg, PRN Naus ea & Vomiting, Start date: 09/24/15 2:12:00 CDT, Duration: 30 day, Stop date: 10/24/15 2:11:00 CDT Notes: (Same as: Shabnam) MEDICATION WASTE Product Size: 4 mgProduct Was tim: ___ mg Start Date: 09/24/15 Stop Date: 09/28/15 Status: Discontinued pantoprazole 40 mg, 1 tab, Route: PO, Drug form: ECTAB, Before Breakfast, Dosing Weight 140.9 09, kg, Start date: 09/28/15 12:00:00 CDT, Duration: 30 day, Stop date: 10/28/15 7:30:00 CDT Notes: Tablet should not be chewed or crushed.(Same as: Protonix) Start Date: 09/28/15 Stop Date: 09/28/15 Status: Discontinued pantoprazole 40 mg oral enteric coated tablet 40 mg, PO, Before Breakfast, # 14 tab, 0 Refill(s) Start Date: 09/28/15 Status: Ordered polyethylene glycol 3350 oral powder for reconstitution 17 gm, PO, Daily, PRN Constipation, # 527 gm, 0 Refill(s) Start Date: 09/28/15 Stop Date: 10/05/15 Status: Ordered potassium chloride 10 mEq, 50 mL, Route: IVPB, Drug form: INJ, ONCE, Dosing Weight 138.636, kg, Sta rt date: 09/24/15 2:30:00 CDT, Stop date: 09/24/15 2:30:00 CDT Notes: (Same as: KCL) Infuse over 2 hours. Start Date: 09/24/15 Stop Date: 09/24/15 Status: Completed Saline Flush 0.9% 10 ml, Route: IVP, Drug Form: INJ, Dosing Weight 138.636, kg, PRN, PRN Line Flus h, Start date: 09/24/15 2:12:00 CDT, Duration: 30 day, Stop date: 10/24/15 2:11: 00 CDT Notes: Same as: BD Posiflush Sterile Start Date: 09/24/15 Stop Date: 09/28/15 Status: Discontinued senna 8.6 mg oral tablet 8.6 mg=1 tab, PO, BID, # 28 tab, 0 Refill(s) Start Date: 09/28/15 Stop Date: 10/13/15 Status: Ordered senna 8.6 mg oral tablet 8.6 mg, 1 tab, Route: PO, Drug Form: TAB, Dosing Weight 138.636, kg, BID, PRN Co nstipation, Start date: 09/24/15 2:13:00 CDT, Duration: 30 day, Stop date: 10/23 2:12:00 CDT Notes: (Same as: Tiffany) Start Date: 09/24/15 Stop Date: 09/24/15 Status: Discontinued senna 8.6 mg oral tablet 8.6 mg, 1 tab, Route: PO, Drug Form: TAB, Dosing Weight 140.909, kg, BID, Start date: 09/24/15 9:00:00 CDT, Duration: 30 day, Stop date: 10/23/15 17:00:00 CDT Notes: (Same as: Senbertha) Start Date: 09/24/15 Stop Date: 09/28/15 Status: Discontinued sodium chloride 0.9% 1000 ml INJ 1,000 mL 1,000 mL, Rate: 45 ml/hr, Infuse over: 22.2 hr, Route: IV, Dosing Weight 138.636 kg, Total Volume: 1,000, Start date: 09/24/15 2:12:00 CDT, Duration: 30 day, St op date: 10/24/15 2:11:00 CDT Start Date: 09/24/15 Stop Date: 09/26/15 Status: Discontinued tramadol 100 mg, 2 tab, Route: PO, Drug form: TAB, Q6Hnow, Dosing Weight 140.909, kg, Sta rt date: 09/26/15 16:00:00 CDT, Duration: 30 day, Stop date: 10/26/15 10:00:00 C DT Notes: Not to exceed 400mg/day. (Same As: Ultram) Start Date: 09/26/15 Stop Date: 09/28/15 Status: Discontinued Zofran 4 mg, 2 mL, Route: IVP, Drug form: INJ, ONCE, Dosing Weight 138.636, kg, Priorit y: STAT, Start date: 09/23/15 18:36:00 CDT, Stop date: 09/23/15 18:36:00 CDT Notes: (Same as: Zofran) MEDICATION WASTE Product Size: 4 mgProduct Was tim: ___ mg Start Date: 09/23/15 Stop Date: 09/23/15 Status: Completed Results BLOOD BANK RESULTS 1 2 3 Most recent to oldest [Reference Range]: O POS *Unknown* (09/25/15 1:11 AM) ABO/Rh Negative (09/25/15 1:11 AM) Antibody Scrn ELECTROLYTES 1 2 3 Most recent to oldest [Reference Range]: 136 mEq/L (09/28/15 3:48 AM) 140 mEq/L (09/27/15 5:00 AM) 141 mEq/L (09/26/15 3:34 AM) Sodium Lvl [135-145 mEq/L] 3.5 mEq/L (09/28/15 3:48 AM) 3.5 mEq/L (09/27/15 5:00 AM) 3.5 mEq/L (09/26/15 3:34 AM) Potassium Lvl [3.5-5.1 mEq/L] 100 mEq/L (09/28/15 3:48 AM) 104 mEq/L (09/27/15 5:00 AM) 105 mEq/L (09/26/15 3:34 AM) Chloride Lvl [95-109 mEq/L] 15 mEq/L *LOW* (09/28/15 3:48 AM) 26 mEq/L (09/27/15 5:00 AM) 27 mEq/L (09/26/15 3:34 AM) CO2 [24-32 mEq/L] 24.5 mEq/L *HI* (09/28/15 3:48 AM) 13.5 mEq/L (09/27/15 5:00 AM) 12.5 mEq/L (09/26/15 3:34 AM) AGAP [10.0-20.0 mEq/L] CHEM PANEL 1 2 3 Most recent to oldest [Reference Range]: 0.98 mg/dL (09/28/15 3:48 AM) 0.97 mg/dL (09/27/15 5:00 AM) 1.00 mg/dL (09/26/15 3:34 AM) Creatinine Lvl [0.50-1.40 mg/dL] 83 mL/min/1.73m2 1 *NA* (09/28/15 3:48 AM) 84 mL/min/1.73m2 2 *NA* (09/27/15 5:00 AM) 80 mL/min/1.73m2 3 *NA* (09/26/15 3:34 AM) eGFR 16 mg/dL (09/28/15 3:48 AM) 16 mg/dL (09/27/15 5:00 AM) 13 mg/dL (09/26/15 3:34 AM) BUN [7-22 mg/dL] 15 (09/24/15 4:51 AM) B/C Ratio [6-25] 107 mg/dL *HI* (09/28/15 3:48 AM) 113 mg/dL *HI* (09/27/15 5:00 AM) 96 mg/dL (09/26/15 3:34 AM) Glucose Lvl [70-99 mg/dL] 6.7 g/dL (09/24/15 4:51 AM) Total Protein [6.4-8.4 g/dL] 3.0 g/dL *LOW* (09/25/15 1:29 AM) 3.5 g/dL (09/24/15 4:51 AM) Albumin Lvl [3.5-5.0 g/dL] 3.2 g/dL (09/24/15 4:51 AM) Globulin [2.0-4.0 g/dL] 1.1 (09/24/15 4:51 AM) A/G Ratio [0.7-1.6] 6.5 mg/dL 4 *CRIT* (09/28/15 3:48 AM) 8.2 mg/dL *LOW* (09/27/15 5:00 AM) 8.3 mg/dL *LOW* (09/26/15 3:34 AM) Calcium Lvl [8.5-10.5 mg/dL] 3.2 mg/dL (09/25/15 1:29 AM) 2.9 mg/dL (09/24/15 4:51 AM) Phosphorus [2.5-4.5 mg/dL] 2.2 mg/dL (09/24/15 4:51 AM) Magnesium Lvl [1.8-2.4 mg/dL] 49 unit/L (09/24/15 4:51 AM) ALT [0-65 unit/L] 38 unit/L *HI* (09/24/15 4:51 AM) AST [0-37 unit/L] 76 unit/L (09/24/15 4:51 AM) Alk Phos [39-136 unit/L] 0.5 mg/dL (09/24/15 4:51 AM) Bili Total [0.2-1.3 mg/dL] 1Result Comment: The eGFR is calculated using the [...] from the National Kid[employer] Education Program ( NKDEP) which additionally recommends that when the eGFR is used in patients with extremes of body mass index for purposes of drug dosing, the eGFR should be mul tiplied by the estimated BMI. 2Result Comment: The eGFR is calculated using the [...] from the [employer] Program ( NK[employer]) which additionally recommends that when the eGFR is used in patients with extremes of body mass index for purposes of drug dosing, the eGFR should be mul tiplied by the estimated BMI. 3Result Comment: The eGFR is calculated using the [...] from the [employer] Program ( NK[employer]) which additionally recommends that when the eGFR is used in patients with extremes of body mass index for purposes of drug dosing, the eGFR should be mul tiplied by the estimated BMI. 4Result Comment: Critical Result(s) called to Precious at 09/28/2015 08:08 by PIETER. Read back OK. SPECIAL CHEMISTRY 1 2 3 Most recent to oldest [Reference Range]: 6.2 % *HI* (09/27/15 5:00 AM) 6.4 % *HI* (09/24/15 4:51 AM) Hgb A1C [<=5.6 %] PARATHYROID PROFILE 1 2 3 Most recent to oldest [Reference Range]: 1.08 mMol/L (09/28/15 10:14 AM) Ca Ion WB [1.05-1.25 mMol/L] 1.11 mMol/L (09/28/15 10:14 AM) Ca Norm WB [1.05-1.25 mMol/L] URINE AND STOOL 1 2 3 Most recent to oldest [Reference Range]: Clear (09/24/15 4:52 AM) UA Turbidity [Clear] Yellow *NA* (09/24/15 4:52 AM) UA Color [Yellow] 5.5 (09/24/15 4:52 AM) UA pH [5.0-8.0] 1.020 (09/24/15 4:52 AM) UA Spec Grav [<=1.030] Negative mg/dL *NA* (09/24/15 4:52 AM) UA Glucose [Negative mg/dL] Negative (09/24/15 4:52 AM) UA Blood [Negative] Negative mg/dL *NA* (09/24/15 4:52 AM) UA Ketones [Negative mg/dL] 10 mg/dL *ABN* (09/24/15 4:52 AM) UA Protein [Negative mg/dL] <=1.0 mg/dL *NA* (09/24/15 4:52 AM) UA Urobilinogen [0.1-1.0 mg/dL] Negative *NA* (09/24/15 4:52 AM) UA Bili [Negative] Negative (09/24/15 4:52 AM) UA Leuk Est [Negative] Negative (09/24/15 4:52 AM) UA Nitrite [Negative] <1 /HPF *NA* (09/24/15 4:52 AM) UA WBC [0-5 /HPF] None Seen *NA* (09/24/15 4:52 AM) UA Sq Epi Few /LPF *NA* (09/24/15 4:52 AM) UA Mucus [None Seen /LPF] HEMATOLOGY 1 2 3 Most recent to oldest [Reference Range]: 12.1 K/CMM *HI* (09/28/15 3:48 AM) 11.7 K/CMM *HI* (09/27/15 5:00 AM) 9.2 K/CMM (09/26/15 3:34 AM) WBC [3.7-10.4 K/CMM] 4.59 M/CMM *LOW* (09/28/15 3:48 AM) 4.49 M/CMM *LOW* (09/27/15 5:00 AM) 4.50 M/CMM *LOW* (09/26/15 3:34 AM) RBC [4.70-6.10 M/CMM] 12.9 g/dL *LOW* (09/28/15 3:48 AM) 12.4 g/dL *LOW* (09/27/15 5:00 AM) 12.7 g/dL *LOW* (09/26/15 3:34 AM) Hgb [14.0-18.0 g/dL] 38.2 % *LOW* (09/28/15 3:48 AM) 37.2 % *LOW* (09/27/15 5:00 AM) 37.7 % *LOW* (09/26/15 3:34 AM) Hct [42.0-54.0 %] 83.2 fL (09/28/15 3:48 AM) 82.8 fL (09/27/15 5:00 AM) 83.8 fL (09/26/15 3:34 AM) MCV [80.0-94.0 fL] 28.0 pg (09/28/15 3:48 AM) 27.7 pg (09/27/15 5:00 AM) 28.3 pg (09/26/15 3:34 AM) MCH [27.0-31.0 pg] 33.7 g/dL (09/28/15 3:48 AM) 33.4 g/dL (09/27/15 5:00 AM) 33.8 g/dL (09/26/15 3:34 AM) MCHC [32.0-36.0 g/dL] 14.4 % (09/28/15 3:48 AM) 14.4 % (09/27/15 5:00 AM) 14.2 % (09/26/15 3:34 AM) RDW [11.5-14.5 %] 264 K/CMM (09/28/15 3:48 AM) 238 K/CMM (09/27/15 5:00 AM) 220 K/CMM (09/26/15 3:34 AM) Platelet [133-450 K/CMM] 8.9 fL (09/28/15 3:48 AM) 9.2 fL (09/27/15 5:00 AM) 9.4 fL (09/26/15 3:34 AM) MPV [7.4-10.4 fL] 65.2 % (09/28/15 3:48 AM) 77.5 % *HI* (09/27/15 5:00 AM) 63.8 % (09/26/15 3:34 AM) Segs [45.0-75.0 %] 21.4 % (09/28/15 3:48 AM) 11.7 % *LOW* (09/27/15 5:00 AM) 23.3 % (09/26/15 3:34 AM) Lymphocytes [20.0-40.0 %] 11.4 % (09/28/15 3:48 AM) 10.7 % (09/27/15 5:00 AM) 10.9 % (09/26/15 3:34 AM) Monocytes [2.0-12.0 %] 1.3 % (09/28/15 3:48 AM) 1.4 % (09/26/15 3:34 AM) 0.1 % (09/24/15 4:51 AM) Eosinophils [0.0-4.0 %] 0.7 % (09/28/15 3:48 AM) 0.1 % (09/27/15 5:00 AM) 0.6 % (09/26/15 3:34 AM) Basophils [0.0-1.0 %] 7.9 K/CMM (09/28/15 3:48 AM) 9.0 K/CMM *HI* (09/27/15 5:00 AM) 5.9 K/CMM (09/26/15 3:34 AM) Segs-Bands # [1.5-8.1 K/CMM] 2.6 K/CMM (09/28/15 3:48 AM) 1.4 K/CMM (09/27/15 5:00 AM) 2.2 K/CMM (09/26/15 3:34 AM) Lymphocytes # [1.0-5.5 K/CMM] 1.4 K/CMM *HI* (09/28/15 3:48 AM) 1.2 K/CMM *HI* (09/27/15 5:00 AM) 1.0 K/CMM *HI* (09/26/15 3:34 AM) Monocytes # [0.0-0.8 K/CMM] 0.2 K/CMM (09/28/15 3:48 AM) 0.1 K/CMM (09/26/15 3:34 AM) Eosinophils # [0.0-0.5 K/CMM] 0.1 K/CMM (09/28/15 3:48 AM) 0.1 K/CMM (09/26/15 3:34 AM) 0.1 K/CMM (09/24/15 4:51 AM) Basophils # [0.0-0.2 K/CMM] 13.6 seconds (09/23/15 4:56 PM) PT [12.0-14.7 seconds] 1.01 (09/23/15 4:56 PM) INR [0.85-1.17] 35.7 seconds (09/24/15 4:51 AM) 37.2 seconds *HI* (09/23/15 4:56 PM) PTT [22.9-35.8 seconds] Immunizations No data available for this section Procedures Procedure Date Related Diagnosis Body Site Cholecystectomy Social History Social History Type Response Smoking Status Never smoker; Type: Cigarettes; Ready to change: No; Concerns about tobacco use in household: No; Exposure to Tobacco Smoke None; Cigarette Smoking Last 365 Days No; Reg Smoking Cessation Counseling No Assessment and Plan Extracted from: Title: ORTHO TRAUMA Author: Danielle Paula [employer] Date: 09/28/15 ORS TRAUMA Doing ok NAD Comfortable Resting in bed Family at bedside Vitals and Temp: VitalsTmp(F)[id number] 09/27 08:[id number]--- 09/27 03:0698.652071/661105--- 09/26 23:5499.536573/302733--- 09/26 20:2398.269542/001600--- 09/26 16:1798.891166/797783--- 24 Hr Tmax: 99.1F (37.28c) at 09/26 23:54Vital Signs are the last 5 in the past 48 hours. Scheduled Meds (11):amLODIPine, docusate (docusate sodium 100 mg oral capsule), enoxaparin, furosemide (Lasix), gabapentin, hydrochlorothiazide, lisinopril, polyethylene glycol 3350 (MiraLax), senna (senna 8.6 mg oral tablet), tamsulosin (Flomax), tramadol Unscheduled Meds: None PRN Meds (9):acetaminophen-hydrocodone (Harpswell 5/325 oral tablet), acetaminophen- hydrocodone ([place] 5/325 oral tablet), docusate, hydrALAZINE, labetalol, lactulose (lactulose 10 g/15 mL oral syrup), methocarbamol, ondansetron, sodium chloride (Saline Flush 0.9%) One Time Meds: None Continuous Infusions: None [facility] BUN: 16 09/28/15 Hct: 38.2 Low 09/28/15 Hgb: 12.9 Low 09/28/15 MCH: 28.0 09/28/15 MCHC: 33.7 09/28/15 MCV: 83.2 09/28/15 MPV: 8.9 09/28/15 Platelet: 264 09/28/15 RBC: 4.59 Low 09/28/15 RDW: 14.4 09/28/15 WBC: 12.1 High 09/28/15 RUESILT R/M/U Intact R/M/U/AIN/PIN, weak thumb extension Fingers wwp with BCR +2 radial pulse Dressing c/d/i Elevated LUESILT R/M/U Intact R/M/U/AIN/PIN Fingers wwp with BCR +2 radial pulse Sling at bedside DIAGNOSESRight proximal ulna fracture Right radial head fracture - NONOP Left radial head fracture - NONOP A/P60 y/o M s/p fall on 09/23/2015 SURGERIES09/26/2015ORIF R olecranon fracture Open treatment of radial head with parial excision R LUCL repair EUA L elbow PLAN 1. Pain: Per primary team 2. DVT prophylaxis: Defer to the primary team for management. Orthopedics recommends ASA 325 mg PO bid x 2 weeks from date of discharge. 3. HH 12.9 4. Abx: Complete 5. PT/OT: Consulted 6. WBS: NWB ISAIAHE 7. Dressings: RUE - Keep splint in place for now - Keep dressings clean and dry 8. Bowel regimen: Per primary team 9. Anticipated dispo: No further orthopedic intervention, follow up with Dr. Dean on October 04, 2015. Call [phone] for appointment. 10. Plan for surgery: NA 11. Please call Ortho for any question or concerns. Extracted from: Title: [facility] Consult Note Author: Vahe Llamas MD Date: 09/27/15 Patient: SAVANNAH MORALES Age: 60 years Sex: Male : 1955 Associated Diagnoses: None Author: Vahe Llamas MD Basic Information Referral source Reason for consultation: Complex Acute Pain Chief Complaint acute complex post-operative pain History of Present Illness 60 yo w m w/hx. of htn. Pt stepped over a scaffolding at work, but did not clear the obstacle and fell hands first. He suffered left radial neck fracture and comminuted fracture of the right proximal ulna and dislocation of the right radial head. He did not lose consciousness, denies chest pain and dyspnea, and did not injure his legs. He is admitted for surgical repair. Patient is s/p ORIF R ulna and radial head replacement. Pt tolerated the procedure well, however had increasing pain in PACU requiring multimodal therapy including a R supraclavicular nerve block. Patient received 20 cc 0.5% bupivicaine with 3 mg dexamethasone. Tolerated block well with improving pain control. 09/26 Patient not complaining of any pain at this time but, R arm is still numb where supraclavicular ss was placed. We will reevaluate this afternoon for return of sensation. Histories Past Medical History: Resolved Hypertension ([id number]): Resolved. GERD (gastroesophageal reflux disease) ([id number]): Resolved. Family History: Procedure history: Cholecystectomy ([id number]). Social History Social & Psychosocial Habits Tobacco 09/23/2015 Use: Never smoker Type: Cigarettes Ready to change: No Concerns about tobacco use in household: No Exposure to Tobacco Smoke None Cigarette Smoking Last 365 Days No Reg Smoking Cessation Counseling No . Health Status Allergies: Allergic Reactions (All) Severity Not Documented NKDA- No reactions were documented., Allergies (1) ActiveReaction NKDANone Documented Current medications: (Selected) Inpatient Medications Ordered ANES ondansetron: 4 mg, 2 mL, IVP, ONCE, PRN: Nausea & Vomiting Flomax: 0.4 mg, 1 cap, PO, Daily Lasix: 80 mg, 2 tab, PO, Daily MiraLax: 17 gm, 1 pkt, PO, Daily [place] 5/325 oral tablet: 1 tab, PO, Q4H, PRN: Pain Score 4-6 [place] 5/325 oral tablet: 2 tab, PO, Q4H, PRN: Pain Score 7-10 Saline Flush 0.9%: 10 ml, IVP, PRN, PRN: Line Flush amLODIPine: 10 mg, 1 tab, PO, Daily docusate sodium 100 mg oral capsule: 100 mg, 1 cap, PO, BID docusate: 100 mg, 1 cap, PO, BID, PRN: Constipation enoxaparin: 40 mg, 0.4 mL, SUB-Q, [id number] gabapentin: 300 mg, 1 cap, PO, Q8Hnow hydrALAZINE: 10 mg, 0.5 mL, IVP, Q4H, PRN: Hypertension hydrochlorothiazide: 25 mg, 1 tab, PO, Daily labetalol: 10 mg, 2 mL, IVP, Q4H, PRN: Other -See Comment lisinopril: 40 mg, 2 tab, PO, Daily methocarbamol: 1,000 mg, 2 tab, PO, Q8H, PRN: Muscle Spasms ondansetron: 4 mg, 2 mL, IVP, Q6H, PRN: Nausea & Vomiting senna 8.6 mg oral tablet: 8.6 mg, 1 tab, PO, BID tramadol: 100 mg, 2 tab, PO, Q6Hnow Documented Medications Suspended Flomax 0.4 mg oral capsule: 0.4 mg, 1 cap, PO, Daily, 30 cap, 0 Refill(s) Lasix 80 mg oral tablet: 80 mg, 1 tab, PO, Daily, 90 tab, 0 Refill(s) lisinopril 10 mg oral tablet: 10 mg, 1 tab, PO, Daily, 30 tab, 0 Refill(s), Medications (20) Active Scheduled: (11) amLODIPine 10 mg TAB 10 mg 1 tab, PO, Daily docusate sodium 100 mg CAP 100 mg 1 cap, PO, BID enoxaparin 40 mg/0.4 ml INJ 40 mg 0.4 mL, SUB-Q, [id number] furosemide 40 mg TAB 80 mg 2 tab, PO, Daily gabapentin 300 mg CAP 300 mg 1 cap, PO, Q8Hnow hydrochlorothiazide 25 mg TAB 25 mg 1 tab, PO, Daily lisinopril 20 mg TAB 40 mg 2 tab, PO, Daily polyethylene glycol 17 gm packet 17 gm 1 pkt, PO, Daily senna 8.6 mg TAB 8.6 mg 1 tab, PO, BID tamsulosin 0.4 mg CAP 0.4 mg 1 cap, PO, Daily traMADol 50 mg TAB 100 mg 2 tab, PO, Q6Hnow Continuous: (0) PRN: (9) acetaminophen-hydrocodone 325mg-5mg tab 1 tab, PO, Q4H acetaminophen-hydrocodone 325mg-5mg tab 2 tab, PO, Q4H docusate sodium 100 mg CAP 100 mg 1 cap, PO, BID hydrALAZINE 20 mg/1 ml VL 10 mg 0.5 mL, IVP, Q4H labetalol 100 mg/20 ml VL 10 mg 2 mL, IVP, Q4H methocarbamol 500 mg TAB 1,000 mg 2 tab, PO, Q8H ondansetron 4 mg/2ml INJ VL 4 mg 2 mL, IVP, Q6H ondansetron 4 mg/2ml INJ VL 4 mg 2 mL, IVP, ONCE sodium chloride 0.9% 10ml sterile flush syr BD 10 ml, IVP, PRN Problem list: No qualifying data available Review of Systems Constitutional: Negative. Cardiovascular: Negative. Ear/Nose/Mouth/Throat: Negative. Respiratory: Negative. Gastrointestinal: Negative. Musculoskeletal: RUE pain. Neurologic: Negative. Psychiatric: Negative. Endocrine: Negative. Hematology/Lymphatics: Negative. Physical Examination VS/Measurements Vital Signs (last 24 hrs) Last Charted Temp Oral98.0 DegF (SEP 26:) Heart Rate [id number] bpm (SEP 26:) Resp Rate 20 BRMIN (SEP 26:) GLB577 mmHg (SEP 26:) DBP76 mmHg (SEP 26:) XoI218 % (SEP 26:) General: Alert and oriented. Eye: Pupils are equal, round and reactive to light. HENT: Normocephalic. Neck: Supple, Non-tender. Respiratory: Lungs are clear to auscultation, Respirations are non-labored. Cardiovascular: Normal rate, Regular rhythm, No murmur. Gastrointestinal: Soft, Non-tender. Musculoskeletal RUE tenderness. Integumentary: Warm. Neurologic: Alert, Oriented. Cognition and Speech: Oriented, Speech clear and coherent. Psychiatric: Cooperative, Appropriate mood & affect. Review / Management Results review: Labs (Last four charted values) WBC H 11.7(SEP 26)9.2(SEP 25)H 11.7(SEP 23)H 13.8(SEP 22) Hgb L 12.4(SEP 26)L 12.7(SEP 25)L 12.7(SEP 23)L 13.0(SEP 22) Hct L 37.2(SEP 26)L 37.7(SEP 25)L 39.1(SEP 23)L 39.3(SEP 22) Plt 238(SEP 26)220(SEP 25)222(SEP 23)230(SEP 22) Na 140(SEP 26)141(SEP 25)143(SEP 24)144(SEP 23) K 3.5(SEP 26)3.5(SEP 25)3.5(SEP 18)L 3.4(SEP 23) CO2 26(SEP 26)27(SEP 25)28(SEP 24)27(SEP 23) Cl 104(SEP 26)105(SEP 25)107(SEP 18)106(SEP 23) Cr 0.97(SEP 26)1.00(SEP 25)0.87(SEP 24)1.07(SEP 23) BUN 16(SEP 26)13(SEP 25)14(SEP 24)16(SEP 23) Glucose Random H 113(SEP 26)96(SEP 25)H 108(SEP 18)H 128(SEP 23) Mg 2.2(SEP 23) Phos 3.2(SEP 18)2.9(SEP 17) Ca L 8.2(SEP 26)L 8.3(SEP 25)L 8.2(SEP 24)L 7.8(SEP 23) PT 13.6(SEP 22) INR 1.01(SEP 22) PTT 35.7(SEP 17)H 37.2(SEP 22). Chest x-ray results ECG interpretation Impression and Plan Diagnosis Orders Education and Follow-up: Counseled: Regarding treatment, Regarding medications. 60 yo s/p ORIF R ulna and radial head repair with R supraclavicular single shot PNB. Tolerated well. Pain well controlled. -continue norco -continue gabapentin -d/c morphine -continue tramadol -will reevaluate this afternoon and sign off if patient has return of motor and sensory function in RUE. [facility] appreciates this consult, for questions contact us at [phone] Vahe Llamas MD Pgy-[id number] Addendum TEACHING ADDENDUM: by I saw and personally examined this patient and discussed the plan of care with the [facility] resident. I have reviewed the note below and agree with the history, examination findings Marisela MALIK and the plan of care. on 09/29/2015 15:39 Extracted from: Title: Hospitalist History and Author: Shirin Delong MD Date: 09/24/15 Physical Assessment/Plan 1.Left radial fracture splinted 2.Fracture of right ulna splinted surgical repair later this morning low risk for perioperative cardiac event Will optimize BP preop, as he missed yesterday's BP meds 3.Dislocation of distal end of right radius As above 4.Acute pain due to injury Harpswell and morphine prn 5.Hypertension resume home lisinopril amlodipine (felodipine is non formulary here) Hold lasix until post operatively 6.History of BPH Flomax 7.Morbid obesity Counselled 8.Hyperglycemia [id number] 9.Hypokalemia Replete IV raul is NPO Orders: acetaminophen, 650 mg, 2 tab, Route: PO, Drug form: TAB, Q4H, Dosing Weight 138.636, kg, PRN Pain 1-3/Temp > 100.4 F, Start date: 09/24/15 2:12:00 CDT, Duration: 30 day, Stop date: 10/24/15 2:11:00 CDT acetaminophen-hydrocodone 325 mg-5 mg oral tablet, 1 tab, Route: PO, Drug Form: TAB, Dosing Weight 138.636, kg, Q4H, PRN Pain Score 4-6, Start date: 09/24/15 2:12:00 CDT, Duration: 30 day, Stop date: 10/24/15 2:11:00 CDT amLODIPine, 10 mg, 1 tab, Route: PO, Drug form: TAB, Daily, Dosing Weight 138.636, kg, Start date: 09/24/15 9:00:00 CDT, Duration: 30 day, Stop date: 10/23/15 9:00:00 CDT docusate, 100 mg, 1 cap, Route: PO, Drug form: CAP, BID, Dosing Weight 138.636, kg, PRN Constipation, Start date: 09/24/15 2:12:00 CDT, Duration: 30 day, Stop date: 10/24/15 2:11:00 CDT enoxaparin, 40 mg, 0.4 mL, Route: SUB-Q, Drug form: INJ, [id number], Dosing Weight 138.636, kg, Consider for obese patients, Start date: 09/24/15 3:00:00 CDT, Duration: 30 day, Stop date: 10/23/15 15:00:00 CDT lisinopril, 10 mg, 1 tab, Route: PO, Drug form: TAB, Daily, Dosing Weight 138.636, kg, Start date: 09/24/15 9:00:00 CDT, Duration: 30 day, Stop date: 10/23/15 9:00:00 CDT morphine Sulfate, 2 mg, 1 mL, Route: IVP, Drug form: INJ, Q4H, Dosing Weight 138.636, kg, PRN Pain Score 7-10, Start date: 09/24/15 2:12:00 CDT, Duration: 30 day, Stop date: 10/24/15 2:11:00 CDT ondansetron, 4 mg, 2 mL, Route: IVP, Drug form: INJ, Q6H, Dosing Weight 138.636, kg, PRN Nausea & Vomiting, Start date: 09/24/15 2:12:00 CDT, Duration: 30 day, Stop date: 10/24/15 2:11:00 CDT potassium chloride, 10 mEq, Route: IVPB, ONCE, Dosing Weight 138.636, kg, Start date: 09/24/15 2:30:00 CDT, Stop date: 09/24/15 2:30:00 CDT senna 8.6 mg oral tablet, 8.6 mg, 1 tab, Route: PO, Drug Form: TAB, Dosing Weight 138.636, kg, BID, PRN Constipation, Start date: 09/24/15 2:13:00 CDT, Duration: 30 day, Stop date: 10/24/15 2:12:00 CDT Saline Flush 0.9%, 10 ml, Route: IVP, Drug Form: INJ, Dosing Weight 138.636, kg, PRN, PRN Line Flush, Start date: 09/24/15 2:12:00 CDT, Duration: 30 day, Stop date: 10/24/15 2:11:00 CDT sodium chloride 0.9% 1000 ml INJ 1,000 mL, 1,000 mL, Rate: 45 ml/hr, Infuse over: 22.2 hr, Route: IV, Dosing Weight 138.636 kg, Total Volume: 1,000, Start date: 09/24/15 2:12:00 CDT, Duration: 30 day, Stop date: 10/24/15 2:11:00 CDT Flomax, 0.4 mg, 1 cap, Route: PO, Drug form: CAP, Daily, Dosing Weight 138.636, kg, Start date: 09/24/15 9:00:00 CDT, Duration: 30 day, Stop date: 10/23/15 9:00:00 CDT Ambulation Up with Assistance CDM Admission Acute Care Post ED CDM Common IV Orders Complete Blood Count w/ Diff and Platelet Comprehensive Metabolic Panel Creatinine Hemoglobin A1c Magnesium Level Partial Thromboplastin Time Provide Education AC4 Patient Education AC4 Phosphorus Level Platelet Count Resuscitation (Code) Status SCD Application UA with culture if indicated Vital Signs Weigh patient AC4 Prophylaxis Lovenox Disposition pending surgical repair [facility] Hospitalist service is primary. Page [phone] with concerns.
[2017-12-25 11:17] LABS: WBC,FECAL (FECAL LACTOFERRIN) NEGATIVE (NEGATIVE)
[2017-12-25 11:27] VITALS: BP 112/60
--- NOTE | 2017-12-25 13:47 | Operative Report ---
DATE OF PROCEDURE: December 25, 2017 REFERRING PHYSICIAN: Dr. Jason Babcock. PROCEDURE PERFORMED: Colonoscopy and polypectomy with biopsies. INDICATIONS FOR COLONOSCOPY: Colorectal cancer screening. MEDICATION: Patient was done under MAC. Please see anesthesiologist's note. PROCEDURE: With the patient in the left lateral decubitus position, the flexible fiberoptic Olympus colonoscope was inserted into the rectum with ease and advanced all the way to the cecum. Mucosa overlying the cecum appeared to be within normal limits. The ileocecal was intubated and the scope was advanced into the terminal ileum. Biopsies were obtained. The scope was then withdrawn back into the colon. It was then withdrawn slowly and one polyp was hot biopsied from the ascending colon. Two polyps were hot biopsied from the transverse colon and one polyp was snared from the descending colon. Mucosa overlying the left colon revealed some patchy mild inflammatory changes as well as that overlying the rectum and random biopsies were obtained. One polyp was snared from the sigmoid colon. One submucosal nodule in the proximal rectum was removed per snare electrocautery. The scope was then retroflexed into the distal rectum and small internal hemorrhoids were noted, none of which were actively bleeding. The scope was then straightened out. The rectosigmoid area as well as the distal rectal area were decompressed. The scope was subsequently withdrawn after securing an adequate stool specimen that was sent for the appropriate stool studies. Patient tolerated the procedure well. IMPRESSION 1. Ascending colon polyp removed from hot biopsy forceps. 2. Transverse colon polyps times 2, hot biopsied. 3. Descending colon polyps times 1, snared. 4. Mild patchy left-sided colitis. 5. Sigmoid colon polyp, snared. 6. Rectal submucosal nodule snared. 7. Proctitis, mild. 8. Internal hemorrhoids, none actively bleeding. PLAN: Follow up histology. Follow up stool studies. Initiate VSL#3 one p.o. daily and Bentyl 10 mg 1 p.o. t.i.d.. Patient might benefit from a followup colonoscopy in 3 years. Job#: [id number] VAS cc:DR. JASON BABCOCK
[2017-12-25 14:55] LABS: C DIFFICILE TOXIN A&B AMP PROB NEGATIVE (NEGATIVE)
== END | disposition home or self-care (01) ==
LOC: ENDO 08:10
PROVIDERS: ATTEND Internal Medicine Gastroenterology
DX: Z12.11 Encounter for screening for malignant neoplasm of colon (principal); D12.2 Benign neoplasm of ascending colon; D12.3 Benign neoplasm of transverse colon; D12.4 Benign neoplasm of descending colon; K62.1 Rectal polyp; K29.70 Gastritis, unspecified, without bleeding; K51.50 Left sided colitis without complications; K22.70 Barrett's esophagus without dysplasia; K20.9 Esophagitis, unspecified; K44.9 Diaphragmatic hernia without obstruction or gangrene; K21.9 Gastro-esophageal reflux disease without esophagitis; K62.89 Other specified diseases of anus and rectum; K64.8 Other hemorrhoids; I10 Essential (primary) hypertension; G47.33 Obstructive sleep apnea (adult) (pediatric); E66.01 Morbid (severe) obesity due to excess calories; E11.9 Type 2 diabetes mellitus without complications; Z01.810 Encounter for preprocedural cardiovascular examination; Z79.82 Long term (current) use of aspirin; Z68.41 Body mass index [BMI] 40.0-44.9, adult
CPT/HCPCS: 36415; 45380; 45384; 45385; 82948; 83630; 83993; 87045; 87177; 87328; 87493; 93005; J1980; J2250; 45378

== ENCOUNTER → 2021-01-11 | Day surgery (SDC) | payer MEDICARE, OTHER ==
[2021-01-08 14:44] LABS: BASOPHILS % 0.5 % (0.0-1.0); EOSINOPHILS # (AUTO) 0.1 (0.0-0.4); EOSINOPHILS % 0.8 % (0.0-6.0); HEMOGLOBIN 13.5 g/dL (14.0-18.0); LYMPHOCYTES # (AUTO) 2.2 (1.0-3.2); LYMPHOCYTES % 25.5 % (18.0-39.1); MEAN CORPUSCULAR HEMOGLOBIN 27.6 pg (28-32); MEAN CORPUSCULAR HGB CONC 32.1 g/dL (31-35); MEAN CORPUSCULAR VOLUME 85.7 fL (81-99); MONOCYTES # (AUTO) 0.6 (0.2-0.8); MONOCYTES % 6.8 % (4.4-11.3); NEUTROPHILS # (AUTO) 5.7 (2.1-6.9); NEUTROPHILS % 66.1 % (38.7-80.0); PLATELET COUNT 242 x10e3/uL (140-360); RED CELL DISTRIBUTION WIDTH 14.1 % (11.7-14.4)
[~2021-01-11] MED LIST changes: +DOXAZOSIN MESYLA2 MG PO; -FENTANYL CITRATE/PF 100MCG/2 ML INJ ONE; +HYDROCHLOROTHIA25 MG PO; +HYDROXYZINE HCL10 MG PO; -HYOSCYAMINE SULFATE 0.5 MG/ML INJ ONE; +LOSARTAN POTAS100 MG PO; -PROPOFOL IV EMULSION 10 MG/ML 50 ML VIAL ONE; +ZINC
[2021-01-11 10:35] VITALS: BP 123/68
[2021-01-11 11:09] LABS: WBC,FECAL (FECAL LACTOFERRIN) NEGATIVE (NEGATIVE)
[2021-01-11 15:01] LABS: C DIFFICILE TOXIN A&B AMP PROB NEGATIVE (NEGATIVE)
== END | disposition home or self-care (01) ==
LOC: OR 07:06
PROVIDERS: ATTEND Internal Medicine Gastroenterology
DX: K29.70 Gastritis, unspecified, without bleeding (principal); D12.2 Benign neoplasm of ascending colon; K31.7 Polyp of stomach and duodenum; K20.90 Esophagitis, unspecified without bleeding; K59.00 Constipation, unspecified; K44.9 Diaphragmatic hernia without obstruction or gangrene; K31.89 Other diseases of stomach and duodenum; K21.9 Gastro-esophageal reflux disease without esophagitis; K62.89 Other specified diseases of anus and rectum; K64.8 Other hemorrhoids; R20.8 Other disturbances of skin sensation; G47.33 Obstructive sleep apnea (adult) (pediatric); I10 Essential (primary) hypertension; E66.01 Morbid (severe) obesity due to excess calories; R73.03 Prediabetes; B40.0 Acute pulmonary blastomycosis; Z01.812 Encounter for preprocedural laboratory examination; Z20.822 Contact with and (suspected) exposure to COVID-19; Z79.82 Long term (current) use of aspirin; Z68.41 Body mass index [BMI] 40.0-44.9, adult
CPT/HCPCS: 36415 ×2; 43239; 45380; 45384; 45385; 82948; 83630; 83993; 85025; 87045; 87177; 87328; 87493; 88305; 88312; J2250; U0002; 45378; 88304

== ENCOUNTER → 2021-02-16 | Day surgery (SDC) | payer MEDICARE, OTHER ==
[2021-02-14 08:42] LABS: BASOPHILS % 0.6 % (0.0-1.0); EOSINOPHILS # (AUTO) 0.1 (0.0-0.4); EOSINOPHILS % 1.7 % (0.0-6.0); HEMATOCRIT 40.7 % (38.2-49.6); HEMOGLOBIN 13.1 g/dL (14.0-18.0); LYMPHOCYTES % 27.3 % (18.0-39.1); MEAN CORPUSCULAR HEMOGLOBIN 27.9 pg (28-32); MEAN CORPUSCULAR HGB CONC 32.2 g/dL (31-35); MEAN CORPUSCULAR VOLUME 86.6 fL (81-99); MONOCYTES # (AUTO) 0.7 (0.2-0.8); MONOCYTES % 9.4 % (4.4-11.3); NEUTROPHILS # (AUTO) 4.4 (2.1-6.9); NEUTROPHILS % 60.7 % (38.7-80.0); PLATELET COUNT 241 x10e3/uL (140-360); RED CELL DISTRIBUTION WIDTH 14.7 % (11.7-14.4)
[~2021-02-16] MED LIST changes: +COLESTIPOL HCL1 GM PO; +FENTANYL CITRATE/PF 100MCG/2 ML INJ ONE; +LIDOCAINE HCL 2% LOCAL INJ 5 ML SDV VIAL INJ ONE; +METOCLOPRAMIDE HCL 10 MG/2ML VIAL ONE; +PROPOFOL IV EMULSION 10 MG/ML 20 ML VIAL ONE; +VITAMIN B-1250 MC1 PEG; -ZINC; +ZINC PO
[2021-02-16 12:50] VITALS: BP 126/61
== END | disposition home or self-care (01) ==
LOC: OR 09:26
PROVIDERS: ATTEND Internal Medicine Gastroenterology
DX: K31.89 Other diseases of stomach and duodenum (principal); K31.7 Polyp of stomach and duodenum; K29.60 Other gastritis without bleeding; K20.90 Esophagitis, unspecified without bleeding; K44.9 Diaphragmatic hernia without obstruction or gangrene; Z86.010 Personal history of colon polyps; G47.33 Obstructive sleep apnea (adult) (pediatric); I11.0 Hypertensive heart disease with heart failure; I50.9 Heart failure, unspecified; E11.9 Type 2 diabetes mellitus without complications; Z01.812 Encounter for preprocedural laboratory examination; Z20.822 Contact with and (suspected) exposure to COVID-19; Z79.82 Long term (current) use of aspirin; Z79.899 Other long term (current) drug therapy; Z68.41 Body mass index [BMI] 40.0-44.9, adult
CPT/HCPCS: 36415 ×2; 43239; 43251; 82948; 85025; 88305; 88342; C9113; J2001; J2250; J2704; J2765; J3010; U0002